=== PATIENT | male | born 1940 | race Caucasian/White ===

== ENCOUNTER 2021-04-07 13:58 | Outpatient (CLI) | payer MEDICARE, SELFPAY ==
--- NOTE | ~2021-04-07 | CT_ITS ---
EXAMINATION: CT abdomen pelvis wo con DATE: 04/07/2021 14:25 INDICATION: History of malignant neoplasm of the bladder TECHNIQUE: Computed tomography (CT) of the abdomen and pelvis was performed without intravenous contr ast. Automated exposure control and iterative reconstruction technique were employed. Exam dose: 429 .95 mGy-cm total exam DLP. COMPARISON: 01/06/2017 CT abdomen pelvis with IV contrast material FINDINGS: Chronic stable focal scarring in the middle lobe, unchanged since 01/06/2017. Minimal atelect asis at the left lung base. Normal heart size. Coronary artery calcifications. There is a small pericardial effusion. No pleural effusion. Small sliding hiatal hernia. Status post cholecystectomy. Calcified hepatic granuloma. Occasional calcified splenic granulomas. No hepatic, splenic, pancreatic, and adrenal space-occupying mass lesion is evident. Probable 2.5 cm lower pole left renal cyst (mean 8.4 Hounsfield units), increased from approximately 1.5 cm dimension on 01/06/2017. No other renal space occupying mass lesion is suggested on this limited noncontrast examination. There is calcification of the abdominal aorta and prominent calcification at the origins of the renal arteries. No abdominal aortic aneurysm. Prominent iliac and femoral artery calcifications. Status post prostatectomy; surgical clips are noted along the pelvic briseno. No intraperitoneal or ret roperitoneal or pelvic mass lesion or adenopathy or ascites is evident. Bilateral small fat-containing inguinal hernias. There is a prominent tibiotalar colon but no bowel obstruction is evident.. Prominent calcifications are noted at the prostate bed and the left anterolateral base of the urinary bladder, Moderate anterior wedge compression fracture deformity of T10. Diffuse osteopenia. Moderate degenerat carmela disc disease at L2-3 and L3-4 and moderately severe degenerative disc disease at L4-5 and L5-S1. IMPRESSION: Status post prostatectomy No significant abdominal or pelvic mass lesion or lymphadenopathy is evident 2.5 cm lower pole left renal probable cyst, increased from 1.5 cm dimension on 01/06/2017 Status post cholecystectomy Small sliding hiatal hernia Small pericardial effusion Reviewed, dictated and finalized at [facility] Reviewed, dictated and finalized at [facility].
== END 2021-04-07 13:59 | disposition home or self-care (01) ==
PROVIDERS: PCP Family Medicine; Visit Provider Urology
DX: Z85.51 Personal history of malignant neoplasm of bladder (principal); K44.9 Diaphragmatic hernia without obstruction or gangrene; Z90.49 Acquired absence of other specified parts of digestive tract; I31.3 Pericardial effusion (noninflammatory)
CPT/HCPCS: 74176

== ENCOUNTER 2021-05-03 15:12 | Emergency (ER) | payer MEDICARE, SELFPAY ==
[2021-05-03 15:24] VITALS: BP 118/73; PULSE 86; RESP 18; TEMP 36; O2SAT 97
--- NOTE | 2021-05-03 15:43 | ED.EAR ---
HPI - Ear Problem General Chief complaint: Ear Stated complaint: Left Ear Pain Time Seen by Provider: 05/03/21 15:31 Source: patient and RN notes reviewed Mode of arrival: ambulatory Limitations: no limitations History of Present Illness HPI Narrative: Patient presents today complaining of a possible foreign body to his left ear. Patient believes he may have a hearing aid ear piece lodged in his left ear canal for the past 4 days, but is unsure. First he believed it may been some earwax so he used some Debrox drops, but did not feel that they penetrated down his ear canal to his eardrum properly. 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 He is experiencing some intermittent shooting pains through his ear canal MD Complaint: ear pain Related Data Home Medications Medication Instructions Recorded Confirmed lisinopril 20 mg PO BID 08/13/19 12/29/20 metoprolol succinate 100 mg 100 mg PO DAILY 12/29/20 12/29/20 tablet,extended release 24 hr pravastatin 20 mg tablet 20 mg PO DAILY tablet 12/29/20 12/29/20 nitrofurantoin monohyd/m-cryst 05/03/21 05/03/21 Allergies Allergy/AdvReac Type Severity Reaction Status Date / Time No Known Allergies Allergy Unverified 05/03/21 15:37 Review of Systems Review of Systems: CONSTITUTIONAL: Denies body aches, fever, chills, or sweats. EYES: Denies visual changes, redness, or discharge. ENT: Denies rhinorrhea, congestion, sore throat. + Left ear pain, possible foreign body CARDIOVASCULAR: Denies chest pain, palpitations, or edema. RESPIRATORY: Denies cough or dyspnea. GASTROINTESTINAL: Denies abdominal pain, nausea, vomiting, or diarrhea. GENITOURINARY: Denies dysuria or hematuria. SKIN: Denies rash, itching, or wounds. MUSCULOSKELETAL: Denies back pain, joint pain, or myalgia. NEUROLOGIC: Denies headache, numbness, tingling, or weakness. PSYCH: Denies depression or anxiety. [facility] Past Medical History Medical History Bladder cancer CAD (coronary artery disease) History of prostate cancer 1998 Hyperlipidemia Hypertension Prostate CA 1998 Seasonal allergies Use of leuprolide acetate (Lupron) Surgical History Surgical History H/O colonoscopy with polypectomy History of appendectomy History of cholecystectomy History of coronary artery stent placement 1 stent 2003 Hx of colonoscopy Hx of total knee arthroplasty R S/P prostatectomy Family History Family History Father Alzheimer disease Social History Social History Social History: Smoking packs per day: 1 Smoking cigarettes per day: 20.0 Smoking status: Former smoker Tobacco type: cigarettes Second hand tobacco smoke exposure: No Smoking end date: 11/01/99 Alcohol intake: never Substance use: never Substance use type: does not use Gender identity (if verbalized by the patient): Male Comments At time of signature, I have reviewed and agree with nursing past medical, surgical, social and family history unless otherwise noted. Please see nursing chart for further information. There is no relevant family history pertinent to the presenting complaint Exam Narrative: GENERAL: Well-appearing, well-nourished, and in no acute distress. HEAD: Normocephalic, atraumatic. EYES: EOMI. No redness or drainage. Conjunctivae normal. ENT: Mucous membranes pink and moist. Nares clear. Parrish plastic foreign body to left ear canal. See procedure note. NECK: Normal AROM. Supple. No lymphadenopathy. CHEST: No respiratory distress. EXTREMITIES: Normal range of motion. No edema. SKIN: Warm, dry, no rash. Capillary refill normal. Normal skin turgor. NEURO: No focal deficits. Alert and oriented x3. Gait steady. PSYCH: N
== END 2021-05-03 15:46 | disposition home or self-care (01) ==
PROVIDERS: Emergency Provider Nurse Practitioner; PCP Family Medicine
DX: T16.2XXA Foreign body in left ear, initial encounter (principal); Z87.891 Personal history of nicotine dependence; I25.10 Atherosclerotic heart disease of native coronary artery without angina pectoris; Z85.46 Personal history of malignant neoplasm of prostate; Z85.51 Personal history of malignant neoplasm of bladder; E78.5 Hyperlipidemia, unspecified; I10 Essential (primary) hypertension; Z95.5 Presence of coronary angioplasty implant and graft; Z90.79 Acquired absence of other genital organ(s)
CPT/HCPCS: 69200; 99212; G0463

== ENCOUNTER 2021-05-08 11:08 | Emergency (ER) | payer MEDICARE, SELFPAY ==
[2021-05-08 11:20] VITALS: BP 125/73; PULSE 78; RESP 18; TEMP 36.4; O2SAT 98
--- NOTE | 2021-05-08 11:34 | ED.SKABFB ---
HPI - Skin/Abscess/Foreign Bdy General Chief complaint: Skin/Abscess/Foreign Body Stated complaint: Ridges on Head Time Seen by Provider: 05/08/21 11:19 Source: patient and RN notes reviewed Mode of arrival: ambulatory Limitations: no limitations History of Present Illness HPI narrative: Patient presents today complaining of rash to his left forehead since this morning. Prior to this rash popping up he did have pain to his left rastafarian yesterday. He also reports a similar rash to the left part in his hair on the left parietal scalp, but he is not sure how long this has been present. Both areas are tender to touch. The area to his left forehead has spread to the left eyebrow. He has used some lubricating eyedrops to the left eye today, but no other odky-xiw-gsdnnfm treatment. MD complaint: rash Related Data Home Medications Medication Instructions Recorded Confirmed lisinopril 20 mg PO BID 08/13/19 12/29/20 metoprolol succinate 100 mg 100 mg PO DAILY 12/29/20 12/29/20 tablet,extended release 24 hr pravastatin 20 mg tablet 20 mg PO DAILY tablet 12/29/20 12/29/20 nitrofurantoin monohyd/m-cryst 05/03/21 05/03/21 Allergies Allergy/AdvReac Type Severity Reaction Status Date / Time No Known Allergies Allergy Unverified 05/03/21 15:37 Review of Systems Review of Systems: CONSTITUTIONAL: Denies body aches, fever, chills, or sweats. EYES: Denies visual changes, redness, or discharge. ENT: Denies rhinorrhea, congestion, sore throat, or otalgia. CARDIOVASCULAR: Denies chest pain, palpitations, or edema. RESPIRATORY: Denies cough or dyspnea. GASTROINTESTINAL: Denies abdominal pain, nausea, vomiting, or diarrhea. GENITOURINARY: Denies dysuria or hematuria. SKIN: Denies itching, or wounds. + Rash MUSCULOSKELETAL: Denies back pain, joint pain, or myalgia. NEUROLOGIC: Denies headache, numbness, tingling, or weakness. PSYCH: Denies depression or anxiety. [facility] Past Medical History Medical History Bladder cancer CAD (coronary artery disease) History of prostate cancer 1998 Hyperlipidemia Hypertension Prostate CA 1998 Seasonal allergies Use of leuprolide acetate (Lupron) Surgical History Surgical History H/O colonoscopy with polypectomy History of appendectomy History of cholecystectomy History of coronary artery stent placement 1 stent 2003 Hx of colonoscopy Hx of total knee arthroplasty R S/P prostatectomy Family History Family History Father Alzheimer disease Social History Social History Social History: Smoking packs per day: 1 Smoking cigarettes per day: 20.0 Smoking status: Former smoker Tobacco type: cigarettes Second hand tobacco smoke exposure: No Smoking end date: 11/01/99 Alcohol intake: never Substance use: never Substance use type: does not use Gender identity (if verbalized by the patient): Male Comments At time of signature, I have reviewed and agree with nursing past medical, surgical, social and family history unless otherwise noted. Please see nursing chart for further information. There is no relevant family history pertinent to the presenting complaint Exam Narrative: GENERAL: Well-appearing, well-nourished, and in no acute distress. HEAD: Normocephalic, atraumatic. EYES: EOMI. No redness or drainage. Conjunctivae normal. ENT: Mucous membranes pink and moist. NECK: Normal AROM. Supple. Left postauricular lymphadenopathy. CHEST: No respiratory distress. EXTREMITIES: Normal range of motion. No edema. SKIN: Warm, dry. Capillary refill normal. Normal skin turgor. Cluster of tiny scabbed lesions with 2 cm surrounding erythema and localized scant edema to the forehead and left eyebrow as well as a cluster
== END 2021-05-08 11:41 | disposition home or self-care (01) ==
PROVIDERS: Emergency Provider Nurse Practitioner; PCP Family Medicine
DX: B02.9 Zoster without complications (principal); Z87.891 Personal history of nicotine dependence; E78.5 Hyperlipidemia, unspecified; I10 Essential (primary) hypertension; I25.10 Atherosclerotic heart disease of native coronary artery without angina pectoris; Z85.46 Personal history of malignant neoplasm of prostate; Z85.51 Personal history of malignant neoplasm of bladder; Z95.5 Presence of coronary angioplasty implant and graft; Z90.79 Acquired absence of other genital organ(s); Z96.659 Presence of unspecified artificial knee joint
CPT/HCPCS: 99213; G0463

== ENCOUNTER 2021-05-22 10:29 | Emergency (ER) | payer MEDICARE, SELFPAY ==
[2021-05-22 10:41] VITALS: BP 134/79; PULSE 80; RESP 18; TEMP 36.2; O2SAT 100
--- NOTE | 2021-05-22 11:06 | ED.GENADULT ---
HPI - General Adult General Chief complaint: Skin/Abscess/Foreign Body Stated complaint: SHINGLES Time Seen by Provider: 05/22/21 11:06 Source: patient and RN notes reviewed Mode of arrival: ambulatory Limitations: no limitations History of Present Illness HPI narrative: 81-year-old male presents with complaints of a raised and painful area to the left side of the scalp for 1 day. ?Hunter reports he was recently treated for shingles and believes he is having another flare up at this time. Reports in a similar way initial rash started off. ?Recently treated with Valacyclovir 1,000mg T.I.D. for 7 days and believes he still has some residual affects. ?Denies new changes in personal hygiene products or laundry detergent. No new foods or medications. No swelling, burning, bleeding, or drainage. Denies fever, chills, headaches, weakness, fatigue, myalgia, facial swelling, or tongue swelling. ?Denies chest pain or dyspnea. Tolerating po intake well. ?The patient reports he has not been diagnosed with COVID-19. ?The patient reports he received 2 AWID COVID-19 vaccines. ?The patient reports he is not waiting for the results of a COVID-19 lab test. ?The patient reports he does not have a new or worsening cough or shortness of breath. ?The patient reports he does not have any rhinorrhea, congestion, loss of taste or smell, sore throat, and diarrhea. ?Denies recent traveling. Denies concerns for COVID-19 or exposures. At this time, the patient is not suspected of having COVID-19. Some parts of this dictation were generated by voice recognition software and may contain typographical and/or grammatical inaccuracies. Related Data Home Medications Medication Instructions Recorded Confirmed lisinopril 20 mg PO BID 08/13/19 05/22/21 metoprolol succinate 100 mg 100 mg PO DAILY 12/29/20 05/22/21 tablet,extended release 24 hr pravastatin 20 mg tablet 20 mg PO DAILY tablet 12/29/20 05/22/21 cetirizine 5 mg-pseudoephedrine ER 1 tablet PO Q12H 05/27/21 120 mg tablet,extended release,12hr fluticasone propionate 50 1 spray INTRANASAL DAILY 05/27/21 mcg/actuation nasal spray,suspension Allergies Allergy/AdvReac Type Severity Reaction Status Date / Time No Known Allergies Allergy Unverified 05/22/21 10:33 Review of Systems Review of Systems: CONSTITUTIONAL: Denies fever, chills, sweats. EYES: Denies visual changes, redness, discharge. ENT: Denies rhinorrhea, congestion, sore throat, otalgia. CARDIOVASCULAR: Denies chest pain, palpitations, edema. RESPIRATORY: Denies dyspnea, wheezing, cough. GASTROINTESTINAL: Denies abdominal pain, nausea, vomiting, diarrhea. SKIN: Complains of a raised and painful area to the left side of the scalp. Denies drainage. MUSCULOSKELETAL: Denies acute back pain, joint pain, or myalgia. NEUROLOGIC: Denies numbness, or focal weakness. PSYCHIATRIC: Denies anxiety or depression. All systems reviewed & are unremarkable except as noted in HPI and below. [facility] Past Medical History Medical History Bladder cancer CAD (coronary artery disease) History of prostate cancer 1998 Hyperlipidemia Hypertension Prostate CA 1998 Seasonal allergies Use of leuprolide acetate (Lupron) Surgical History Surgical History H/O colonoscopy with polypectomy History of appendectomy History of cholecystectomy History of coronary artery stent placement 1 stent 2003 Hx of colonoscopy Hx of total knee arthroplasty R S/P prostatectomy Family History Family History Father Alzheimer disease Social History Social History Social History: Smoking packs per day: 1 Smoking cigarettes per day: 20.0 Smoking status: Former smoker Tobacco type: cigarettes Second hand tobacco smoke exposure: No
== END 2021-05-22 11:25 | disposition home or self-care (01) ==
PROVIDERS: Emergency Provider Nurse Practitioner Family; PCP Family Medicine
DX: B02.9 Zoster without complications (principal); Z87.891 Personal history of nicotine dependence; I25.10 Atherosclerotic heart disease of native coronary artery without angina pectoris; E78.5 Hyperlipidemia, unspecified; I10 Essential (primary) hypertension; Z85.51 Personal history of malignant neoplasm of bladder; Z85.46 Personal history of malignant neoplasm of prostate; Z95.5 Presence of coronary angioplasty implant and graft; Z90.79 Acquired absence of other genital organ(s)
CPT/HCPCS: 99213; G0463

== ENCOUNTER 2021-12-13 07:09 | Emergency (ER) | payer MEDICARE, SELFPAY ==
--- NOTE | ~2021-12-13 | CT_ITS ---
EXAMINATION: CT abdomen pelvis w con DATE: 12/13/2021 09:03 INDICATION: Upper abdominal pain. TECHNIQUE: Computed tomography (CT) of the abdomen and pelvis was performed with 100 mL Omnipaque 350 intravenous contrast. Automated exposure control and iterative reconstruction technique were employe d. The dose-length product was 571.64 mGy-cm. COMPARISON: CT abdomen and pelvis 04/07/21 FINDINGS: The visualized portions of the lung bases demonstrate mild atelectasis. No pleural effusion . The heart size is normal. There are coronary artery calcifications. There is a chronic small perica rdial effusion. There is a portacaval shunt in right hepatic lobe. There are changes of cholecystecto my. Calcifications in the spleen are consistent with old granulomatous disease. The pancreas and adre nal glands are normal. There is cortical thinning of the kidneys. There is a 2.9 cm cyst in left kidn ey. There are no dilated loops of bowel. There is a 3.4 cm mass in distal transverse colon. The appen avinash is not visualized. There are changes of prostatectomy and pelvic lymph node dissection. There are no pathologically enlarged lymph nodes. There is no free intraperitoneal fluid. There is prominent f at in the inguinal canals that may be hernias. There is severe lumbar spondylosis. There is a chronic burst fracture of T10. IMPRESSION: 1. 3.4 cm mass in distal transverse colon suspicious for primary adenocarcinoma. Colonoscopy is recom mended. Reviewed, dictated and finalized at [facility]. IMPRESSION: 1. 3.4 cm mass in distal transverse colon suspicious for primary adenocarcinoma . Colonoscopy is recommended.
[2021-12-13 07:15] VITALS: BP 159/80; PULSE 84; RESP 18; TEMP 36.4; O2SAT 98
[2021-12-13 07:20] VITALS: BP 159/80; O2SAT 100
[2021-12-13 07:31] VITALS: BP 156/82; O2SAT 97
[2021-12-13 07:33] LABS: Basophils Percent Auto 0.2 % (0.2-1.2); Eosinophils Absolute Auto 0.5 K/mm3 (0-0.3); Eosinophils Percent Auto 5.3 % (0-4.4); Hematocrit 42.9 % (42.0-52.0); Hemoglobin 14.9 g/dL (14.0-18.0); Immature Granulocyte Absolute 0.02 K/mm3 (0.00-0.031); Immature Granulocyte Percent A 0.2 % (0-0.5); Lymphocytes Absolute Auto 1.92 K/mm3 (0.9-3.2); Lymphocytes Percent Auto 20.7 % (18.3-44.2); Mean Corpuscular HGB Conc 34.7 g/dl (32-36); Mean Corpuscular Volume 94.9 fl (80-100); Mean Platelet Volume 9.3 fl (7.4-10.4); Monocytes Absolute Auto 0.8 K/mm3 (0.1-0.6); Monocytes Percent Auto 9.1 % (2.6-8.5); Neutrophils Percent Auto 64.5 % (45.5-73.1); Platelet Count Result 242 k/mm3 (150-375); Red Blood Count 4.52 M/mm3 (4.6-6.20); Red Cell Distribution Width 13.8 % (11.5-14.5); White Blood Count 9.3 K/mm3 (4.5-10.0)
[2021-12-13 07:38] LABS: Add Urine Microscopic? YES; Appearance Urine Cloudy (Clear); Bilirubin Urine Negative (Negative); Blood Urine Negative (Negative); Color Urine Amber (Yellow); Glucose Urine UA Negative (Negative); Hyaline Casts Urine 30-49 /lpf; Ketones Urine Negative (Negative); Leukocyte Esterase Ur Negative LEU/UL (Negative); Mucus Urine Rare /lpf; Nitrate Urine Negative (Negative); Protein Urine 1+ mg/dL (Negative); Squamous Epithelial Cell Urine Rare /hpf (Few); Urobilinogen Urine Negative mg/dL (<2.0)
[2021-12-13 07:42] LABS: Alanine Aminotransferase 22 U/L (4-50); Albumin Level 4.6 g/dL (3.5-5.1); Alkaline Phosphatase 70 U/L (38-126); Anion Gap 8 mmol/L (8-16); Aspartate Amino Transferase 40 U/L (17-59); Bilirubin,Total 1.3 mg/dL (0.2-1.3); Blood Urea Nitrogen 12 mg/dL (9-20); Calcium 9.7 mg/dL (8.4-10.2); Carbon Dioxide 28 mmol/L (22-30); Chloride 101 mmol/L (98-107); Estimated CRCL calculation 50 ml/min; Estimated Glomerular Filt Rate > 60; Glucose 111 mg/dL (65-110); Lipase 118 U/L (23-300); Potassium 3.9 mmol/L (3.4-5.0); Sodium 137 mmol/L (137-145)
--- NOTE | 2021-12-13 08:14 | ECG_ITS ---
Measurements Intervals Violet Rate: 69 P: -25 KS: 177 QRS: -3 QRSD: 104 T: 73 QT: 421 QTc: 453 Interpretive Statements SINUS RHYTHM NONSPECIFIC T-WAVE ABNORMALITY COMPARED TO ECG 08/15/2019 10:35:30 NO SIGNIFICANT CHANGE Electronically Signed On 12-13-2021 14:22:50 CDT by Jose Garcia M.D.
[2021-12-13 08:31] VITALS: BP 140/76; PULSE 74; RESP 18; O2SAT 98
[2021-12-13] MEDS: SODIUM CHLORIDE 0.9% IV 1,000 ML 999 ML IV CONT (08:42)
[2021-12-13] MEDS: PANTOPRAZOLE SODIUM IV 40 MG VIAL IV PUSH (08:42)
--- NOTE | 2021-12-13 08:45 | ED.ABDPAIN ---
HPI - Abdominal Pain General Chief Complaint: Abdominal Pain Stated Complaint: abdominal pain Time Seen by Provider: 12/13/21 08:02 Source: patient and RN notes reviewed Mode of arrival: ambulatory Limitations: no limitations History of Present Illness HPI narrative: This is an 81 year old male who presents for evaluation of epigastric abdominal pain. He states he has been having this abdominal pain intermittent for several months. He states this pain usually only happens once a month and last briefly. It usually resolves after taking gas x and belching. This episode started on Monday and it has been constant. He has taken gas x without relief. He has nausea but no vomiting, radiating pain, fever, chills, chest pain or shortness of breath. He takes pepcid intermittently for his symptoms. He rates pain as 4/10 currently. Related Data Home Medications Medication Instructions Recorded Confirmed ascorbate calcium (vitamin C) 500 mg PO DAILY 12/13/21 aspirin [Aspirin Child] 81 mg PO DAILY 12/13/21 cyanocobalamin (vitamin B-12) 2,000 mcg PO DAILY 12/13/21 garlic 1,000 mg PO DAILY 12/13/21 glucosamine sulfate [Glucosamine] 750 mg PO DAILY 12/13/21 ibuprofen 400 mg PO TID PRN 12/13/21 tslmegoj-zoi-ctvc-vitamin K [Adult 1 tablet PO DAILY 12/13/21 Multivitamin with Iron] omega-3 fatty acids-vitamin E 1 cap PO DAILY 12/13/21 [Fish Oil] Allergies Allergy/AdvReac Type Severity Reaction Status Date / Time No Known Allergies Allergy Verified 12/13/21 08:04 Review of Systems Review of Systems: All systems reviewed & are unremarkable except as noted in HPI and below PMFSH Past Medical History Medical History Bladder cancer CAD (coronary artery disease) History of prostate cancer 1998 Hyperlipidemia Hypertension Prostate CA 1998 Seasonal allergies Use of leuprolide acetate (Lupron) Surgical History Surgical History H/O colonoscopy with polypectomy History of appendectomy History of cholecystectomy History of coronary artery stent placement 1 stent 2003 Hx of colonoscopy Hx of total knee arthroplasty R S/P prostatectomy Family History Family History Father Alzheimer disease Social History Social History (Updated 09/02/21 @ 08:41 by Paige Dugan) Social History: Smoking packs per day: 1 Smoking cigarettes per day: 20.0 Smoking status: Former smoker Tobacco type: cigarettes Second hand tobacco smoke exposure: No Smoking end date: 11/01/99 Alcohol intake: never Substance use: never Substance use type: does not use Gender identity (if verbalized by the patient): Male Sexual Orientation (if Verbalized by the Patient): Straight or Heterosexual Exam Const: General: no acute distress and alert Orientation/consciousness: patient oriented x3 Neck: Neck: no lymphadenopathy Resp: Effort & Inspection: normal respiratory effort and no retractions Auscultation: clear to auscultation bilaterally Cardio: Rate: regular rate Rhythm: regular rhythm Heart sounds: no murmurs GI: GI Palp: Yes Soft to palpation, Yes Tenderness to palpation present (GI) (RLQ, epigastric), No Guarding due to palpation present (GI) and No Rigid due to palpation Auscultation: normal bowel sounds Skin: General skin exam: normal color Neuro: General: patient oriented x3, moves all extremities and CN's II-XI intact bilaterally Extrem: General: normal to inspection Psych: Mental Status: mental status grossly normal Affect: normal affect Course Reevaluation(s) Reevaluation #1: I have discussed with patient that CT shows mass concerning for cancer and that he will need to colonoscopy. He feels better and he states he is comfortable with discharge home. I spoke with PCP and Dr. Simmons about CT report. They will try to get p
[2021-12-13 09:05] LABS: Lactic Acid Reflex 0.8 mmol/L (0.7-2.1)
[2021-12-13 09:18] LABS: Troponin I < 0.012 ng/mL (0.000-0.034)
[2021-12-13 10:16] VITALS: BP 155/78; PULSE 75; RESP 18; O2SAT 99
== END 2021-12-13 10:20 | disposition home or self-care (01) ==
PROVIDERS: Emergency Provider General Practice; PCP Family Medicine
DX: K63.9 Disease of intestine, unspecified (principal); R10.13 Epigastric pain; I25.10 Atherosclerotic heart disease of native coronary artery without angina pectoris; E78.5 Hyperlipidemia, unspecified; I10 Essential (primary) hypertension; Z85.46 Personal history of malignant neoplasm of prostate; Z85.51 Personal history of malignant neoplasm of bladder; R94.31 Abnormal electrocardiogram [ECG] [EKG]
CPT/HCPCS: 36415; 74177; 80053; 81001; 83605; 83690; 84484; 85025; 93005; 96361; 96374; 99284; C9113; J7030; Q9967

== ENCOUNTER 2021-12-21 00:21 | Day surgery (SDC) | payer MEDICARE, SELFPAY ==
[2021-12-15 12:58] VITALS: BMI 24.5
[2021-12-21 08:52] VITALS: BP 126/95; PULSE 84; RESP 18; TEMP 35.9; O2SAT 96
[2021-12-21] MEDS: LACTATED RINGERS 1,000 ML 150 ML IV CONT (09:07)
--- NOTE | 2021-12-21 09:13 | WPDGICN ---
Assessment and Plan Assessment and plan (1) Abnormal CT scan: Code(s): R93.89 - Abnormal findings on diagnostic imaging of other specified body structures Status: Acute Assessment and Plan: Abnormal CT scan suggesting mass in the transverse colon. For this reason colonoscopy will be performed today. Further recommendations will be given after endoscopy. (2) History of colon polyps: Code(s): Z86.010 - Personal history of colonic polyps Status: Acute Assessment and Plan: Patient gives a distant history of colon polyps. Plan is for surveillance colonoscopy at this time because of this history. (3) Dyspepsia: Code(s): R10.13 - Epigastric pain Status: Acute Assessment and Plan: Patient gives a history of epigastric pain and gas that improves with omeprazole, Tums and Gas-X. Plan to continue these medications. If pain persists an EGD may need to be performed electively. GI Consult Note Consult date/time: 12/21/21 09:13 HPI: Hunter Ribeiro is a 81 year old male presents for colonoscopy because of abnormal CT scan. Patient reports for many years he has had epigastric pain. This will worsen with spicy foods. Caused him to have gas and belching. The pain will improve with antacid such as Tums and Gas-X. He also has had improvement with omeprazole. He states he had a more severe pain very similar to this within the last 2 weeks prompting him to go to the emergency room. A CT scan in the emergency room suggested a mass in the transverse colon. Patient presents today for further evaluation including colonoscopy. Patient reports having previous colonoscopy with multiple colon polyps removed most recently 10 years ago in [place]. Patient's family history is noncontributory. He does notice some irregularity to his bowel habits that hers chronic in nature. He has never had any bleeding. His weight remains stable. He presents today for colonoscopy. Review of Systems Review of Systems: All systems reviewed & are unremarkable except as noted in HPI and below PMFSH Past Medical History Medical History Bladder cancer CAD (coronary artery disease) History of prostate cancer 1998 Hyperlipidemia Hypertension Prostate CA 1998 Seasonal allergies Use of leuprolide acetate (Lupron) Surgical History Surgical History H/O colonoscopy with polypectomy History of appendectomy History of cholecystectomy History of coronary artery stent placement 1 stent 2003 Hx of colonoscopy Hx of total knee arthroplasty R S/P prostatectomy Family History Family History Father Alzheimer disease Social History Social History (Updated 09/02/21 @ 08:41 by Paige Dugan) Social History: Smoking packs per day: 1 Smoking cigarettes per day: 20.0 Years smoked: 48 Smoking pack-years: 48.00 Smoking status: Former smoker Tobacco type: cigarettes Second hand tobacco smoke exposure: No Smoking end date: 11/01/99 Alcohol intake: current Substance use: never Substance use type: does not use Living arrangements: with family Gender identity (if verbalized by the patient): Male Sexual Orientation (if Verbalized by the Patient): Straight or Heterosexual Spiritual care concerns: No Meds Home Medications and Allergies Home Medications Medication Instructions Recorded Confirmed Type famotidine 40 mg tablet 40 mg PO BID #180 tablet 07/23/21 12/21/21 Rx cetirizine 5 mg-pseudoephedrine ER 1 tablet PO Q12H PRN #180 tablet 09/02/21 12/21/21 Rx 120 mg tablet,extended release,12hr fluticasone propionate 50 1 spray INTRANASAL DAILY #48 g 09/02/21 12/21/21 Rx mcg/actuation nasal spray,suspension lisinopril 20 mg tablet 20 mg PO BID #180 tablet 09/02/21 12/21/21 Rx metoprolol succ
--- NOTE | 2021-12-21 09:16 | WPDANESEPPF ---
Anes - Initial Pre Proc Eval Procedure: Operation Date: 12/21/21 10:15 Proposed Procedures p Colonoscopy - Vinh Simmons MD Date/Time: 12/21/21 09:16 Surgeon: Vinh Simmons MD Pre Op Diagnosis: colon mass, abnormal CAT scan Patient Data Age: 81 Gender: M Height: 1.83 m Weight: 79.4 kg Last Vital Signs Temp 35.9 C L 12/21/21 08:52 Pulse 84 12/21/21 08:52 Resp 18 12/21/21 08:52 BP 126/95 H 12/21/21 08:52 Pulse Ox 96 12/21/21 08:52 Allergies Allergy/AdvReac Type Severity Reaction Status Date / Time No Known Allergies Allergy Verified 12/15/21 12:59 Home Medications Medication Instructions Recorded Confirmed Type famotidine 40 mg tablet 40 mg PO BID #180 tablet 07/23/21 12/21/21 Rx cetirizine 5 mg-pseudoephedrine ER 1 tablet PO Q12H PRN #180 tablet 09/02/21 12/21/21 Rx 120 mg tablet,extended release,12hr fluticasone propionate 50 1 spray INTRANASAL DAILY #48 g 09/02/21 12/21/21 Rx mcg/actuation nasal spray,suspension lisinopril 20 mg tablet 20 mg PO BID #180 tablet 09/02/21 12/21/21 Rx metoprolol succinate 100 mg 100 mg PO DAILY #90 tablet 09/02/21 12/21/21 Rx tablet,extended release 24 hr pravastatin 20 mg tablet 20 mg PO DAILY #90 tablet 09/02/21 12/21/21 Rx garlic 1,000 mg PO DAILY 12/13/21 12/21/21 History glucosamine sulfate [Glucosamine] 750 mg PO DAILY 12/13/21 12/21/21 History omeprazole 40 mg PO DAILY #14 cap 12/13/21 12/21/21 Rx polyethylene glycol 3350 [Miralax] 17 g PO DAILY #238 g 12/13/21 12/21/21 Rx ascorbic acid (vitamin C) 1 g PO DAILY 12/15/21 12/21/21 History calcium carbonate [Calcium 500] 500 mg PO DAILY 12/15/21 12/21/21 History cholecalciferol (vitamin D3) 25 mcg PO DAILY 12/15/21 12/21/21 History [Vitamin D3] coQ10 (ubiquinol) 200 mg PO DAILY 12/15/21 12/21/21 History cyanocobalamin (vitamin B-12) 1,000 mcg PO DAILY 12/15/21 12/21/21 History [Vitamin B-12] ywqpvudtteju-ejdglqqh-rljcvn 1 tablet PO DAILY 12/15/21 12/21/21 History [Centrum Silver] omega-3 fatty acids-fish oil 1 cap PO DAILY 12/15/21 12/21/21 History [[place] 3 Fish Oil] Patient hx anesthesia problems: none Family hx anesthesia problems: none Results Review: All pre-operative results and documents have been reviewed as part of the pre-operative evaluation. [facility] Past Medical History Medical History Bladder cancer CAD (coronary artery disease) History of prostate cancer 1998 Hyperlipidemia Hypertension Prostate CA 1998 Seasonal allergies Use of leuprolide acetate (Lupron) Surgical History Surgical History H/O colonoscopy with polypectomy History of appendectomy History of cholecystectomy History of coronary artery stent placement 1 stent 2003 Hx of colonoscopy Hx of total knee arthroplasty R S/P prostatectomy Family History Family History Father Alzheimer disease Social History Social History Social History: Smoking packs per day: 1 Smoking cigarettes per day: 20.0 Years smoked: 48 Smoking pack-years: 48.00 Smoking status: Former smoker Tobacco type: cigarettes Second hand tobacco smoke exposure: No Smoking end date: 11/01/99 Alcohol intake: current Substance use: never Substance use type: does not use Living arrangements: with family Gender identity (if verbalized by the patient): Male Sexual Orientation (if Verbalized by the Patient): Straight or Heterosexual Spiritual care concerns: No Anes - Eval Final PreProcedure Day of Procedure 12/21/21 09:16 Patient weight: normal Heart: regular rate and rhythm Lungs: decreased breath sounds Airway: Mallampati scale class II Neurological: alert and oriented Last oral intake: >/= 8 hours ASA classification: III Emergent:
[2021-12-21 10:36] VITALS: BP 106/55; PULSE 67; RESP 20; O2SAT 97
[2021-12-21 10:46] VITALS: BP 100/50; PULSE 65; RESP 16; O2SAT 97
[2021-12-21 10:56] VITALS: BP 129/63; PULSE 57; RESP 20; O2SAT 100
--- NOTE | 2021-12-21 11:10 | SUR.PHASEII ---
Called Dr. Zimmerman's office and mad appointment for patient - December 30 at 2pm. Informed and patient of same.
== END 2021-12-21 11:21 | disposition home or self-care (01) ==
PROVIDERS: PCP Family Medicine; Visit Provider Internal Medicine Gastroenterology
PROC: 0DJD8ZZ Inspection of Lower Intestinal Tract, Via Natural or Artificial Opening Endoscopic (ICD-10-PCS; CPT 45378; principal; 2021-12-21 10:15)
DX: D12.3 Benign neoplasm of transverse colon (principal); I25.10 Atherosclerotic heart disease of native coronary artery without angina pectoris; Z85.51 Personal history of malignant neoplasm of bladder; I10 Essential (primary) hypertension; E78.5 Hyperlipidemia, unspecified; Z85.46 Personal history of malignant neoplasm of prostate; Z95.5 Presence of coronary angioplasty implant and graft; Z90.49 Acquired absence of other specified parts of digestive tract; Z87.891 Personal history of nicotine dependence; R10.13 Epigastric pain; R14.0 Abdominal distension (gaseous); R14.2 Eructation
CPT/HCPCS: 45385; 45381; 88304; 88305; J2704; J7120

== ENCOUNTER 2022-02-10 10:45 | Emergency (ER) | payer MEDICARE, SELFPAY ==
--- NOTE | ~2022-02-10 | XR_ITS ---
EXAMINATION: XR wrist RT min 3V INDICATION: Right wrist pain TECHNIQUE: Four views of the right wrist are obtained. COMPARISON: None available FINDINGS: Bone alignment is normal. There is no fracture. Chondrocalcinosis is noted. 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 Soft tissues are unremarkable. IMPRESSION: 1. No acute osseous abnormality. Reviewed, dictated and finalized at location A.
--- NOTE | ~2022-02-10 | XR_ITS ---
EXAMINATION: XR ribs LT 2V INDICATION: Left rib pain TECHNIQUE: 3 views of the left ribs were obtained. COMPARISON: 10/23/2014 FINDINGS: No displaced rib fracture is identified. There is mild atelectasis of the left lung base. N o pleural effusion or pneumothorax is identified. Calcified pulmonary nodules are consistent with old granulomatous disease. IMPRESSION: 1. No displaced rib fracture identified. Reviewed, dictated and finalized at location A.
[2022-02-10 10:48] VITALS: BP 145/78; PULSE 87; RESP 18; TEMP 36.3; O2SAT 96
[2022-02-10 11:24] VITALS: BP 145/78; PULSE 87; RESP 18; TEMP 36.3; O2SAT 96
--- NOTE | 2022-02-10 11:33 | PC.NURSE ---
pt in radiology at this time.
--- NOTE | 2022-02-10 12:14 | ED.FALL ---
HPI - Fall General Chief Complaint: Fall Stated Complaint: Fall Time Seen by Provider: 02/10/22 11:51 Source: patient Mode of arrival: ambulatory Limitations: no limitations History of Present Illness HPI Narrative: 81-year-old male presents with left rib pain and right wrist pain since yesterday. Patient states he was fishing and tripped over his trailer hitch landing on his left side. Patient has been having increased pain since injury. Patient states that the pain increases with taking a deep breath. Patient denies hitting head or LOC. No other complaints MD complaint: fall Onset (ago): day(s) (1) Fall from: standing Fall witnessed: yes, by family Place fall occurred: other ([place]) Loss of consciousness: none Symptoms prior to fall: none Context: tripped/slipped Location of injury: chest Location of injury - extremities: Right: arm Associated symptoms (after fall): denies Related Data Home Medications Medication Instructions Recorded Confirmed garlic 1,000 mg PO DAILY 12/13/21 12/31/21 glucosamine sulfate [Glucosamine] 750 mg PO DAILY 12/13/21 12/31/21 ascorbic acid (vitamin C) 1 g PO DAILY 12/15/21 12/31/21 calcium carbonate [Calcium 500] 500 mg PO DAILY 12/15/21 12/31/21 cholecalciferol (vitamin D3) 25 mcg PO DAILY 12/15/21 12/31/21 [Vitamin D3] coQ10 (ubiquinol) 200 mg PO DAILY 12/15/21 12/31/21 cyanocobalamin (vitamin B-12) 1,000 mcg PO DAILY 12/15/21 12/31/21 [Vitamin B-12] auzjcocbkwrl-gqtfjbfj-dlyquw 1 tablet PO DAILY 12/15/21 12/31/21 [Centrum Silver] omega-3 fatty acids-fish oil 1 cap PO DAILY 12/15/21 12/31/21 [[place] 3 Fish Oil] Allergies Allergy/AdvReac Type Severity Reaction Status Date / Time No Known Allergies Allergy Verified 02/10/22 11:23 Review of Systems Review of Systems: All systems reviewed & are unremarkable except as noted in HPI and below Constitutional: Constitutional: Reports no additional constitutional complaints Eyes: Eyes: Reports no additional eye complaints ENT: Reports system reviewed and no additional complaints, except as documented Cardiovascular: Cardiovascular: Reports no additional cardiovascular complaints Respiratory: Respiratory: Reports no additional respiratory complaints Gastrointestinal: Gastrointestinal: Reports no additional gastrointestinal complaints Genitourinary: Genitourinary: Reports no additional male genitourinary complaints Musculoskeletal: Musculoskeletal: Reports arthralgias Comments: Left ribs right wrist Integumentary/Breasts: Skin/Breast: Reports system reviewed and no additional complaints, except as docu Neurologic: Reports system reviewed and no additional complaints, except as documented Psychiatric: Psychiatric: Reports no additional psychiatric complaints Endocrine: Endocrine: Reports no additional endocrine complaints Hematologic/Lymphatic: Hematologic/Lymphatic: Reports no additional hematologic/lymphatic complaints Allergic/Immunologic: Allergic/Immunologic: Reports no additional allergic/immunologic complaints [facility] Past Medical History Medical History Bladder cancer CAD (coronary artery disease) History of prostate cancer 1998 Hyperlipidemia Hypertension Prostate CA 1998 Seasonal allergies Use of leuprolide acetate (Lupron) Surgical History Surgical History H/O colonoscopy with polypectomy History of appendectomy History of cholecystectomy History of coronary artery stent placement 1 stent 2003 Hx of colonoscopy Hx of total knee arthroplasty R S/P prostatectomy Family History Family History Father Alzheimer disease Other Hypertension Social History Social History Social History: Smoking packs per day: 1 Smoking cigarettes per day: 20.0
[2022-02-10 13:19] VITALS: BP 132/79; PULSE 75; RESP 16; O2SAT 97
== END 2022-02-10 13:00 | disposition home or self-care (01) ==
PROVIDERS: Emergency Provider Nurse Practitioner Family; PCP Family Medicine
DX: S20.212A Contusion of left front wall of thorax, initial encounter (principal); S60.211A Contusion of right wrist, initial encounter; I25.10 Atherosclerotic heart disease of native coronary artery without angina pectoris; E78.5 Hyperlipidemia, unspecified; I10 Essential (primary) hypertension; F17.210 Nicotine dependence, cigarettes, uncomplicated; Z85.46 Personal history of malignant neoplasm of prostate; Z85.51 Personal history of malignant neoplasm of bladder; W01.0XXA Fall on same level from slipping, tripping and stumbling without subsequent striking against object, initial encounter
CPT/HCPCS: 71100; 73110; 99284

== ENCOUNTER 2022-04-13 09:46 | Outpatient (CLI) | payer MEDICARE, SELFPAY ==
[2022-04-13 11:18] LABS: Hematocrit 40.8 % (42.0-52.0); Hemoglobin 13.4 g/dL (14.0-18.0)
== END 2022-04-13 09:47 | disposition home or self-care (01) ==
LOC: ANHSURGERY 09:53
PROVIDERS: Anesthesiology; PCP Family Medicine; Visit Provider Surgery
DX: Z01.812 Encounter for preprocedural laboratory examination (principal); D12.6 Benign neoplasm of colon, unspecified
CPT/HCPCS: 36415; 85014; 85018

== ENCOUNTER 2022-04-21 17:12 | Emergency (ER) | payer MEDICARE, SELFPAY ==
--- NOTE | ~2022-04-21 | XR_ITS ---
EXAMINATION: XR chest 1V portable DATE: 04/21/2022 20:45 INDICATION: Productive cough. Fever. TECHNIQUE: A single frontal view of the chest was obtained. COMPARISON: Left wrist radiographs 02/10/2022 FINDINGS: There is mild elevation of left hemidiaphragm. There is mild atelectasis at left lung base. No pleural effusion or pneumothorax. The heart size is normal. There are surgical clips in right axi lla. IMPRESSION: 1. Mild atelectasis at left lung base. Reviewed, dictated and finalized at location A.
[2022-04-21 17:21] VITALS: BP 145/80; PULSE 90; RESP 20; TEMP 36.9; O2SAT 98
--- NOTE | 2022-04-21 20:30 | ED.GENADULT ---
HPI - General Adult General Chief complaint: Upper Respiratory Infection <Romy Mclaughlin PA-C - Last Filed: 04/22/22 02:18> Stated complaint: Wants COVID Test <Romy Mclaughlin PA-C - Last Filed: 04/22/22 02:18> Time Seen by Provider: 04/21/22 20:07 <Romy Mclaughlin PA-C - Last Filed: 04/22/22 02:18> History of Present Illness HPI narrative: Patient is 82-year-old male here for evaluation of cough for the past 2 days. Patient states the cough is productive in nature, and is relieved from ojrj-agw-wkdivpf medications. States that he largely presents today for COVID test, as he did not want to wait in line at [facility] or get an appointment. He had a low-grade temperature yesterday at 100.1, took Tylenol with resolution. He is not having any chest pain, shortness of breath, leg swelling. He is fully vaccinated with 2 boosters. <Romy Mclaughlin PA-C - Last Filed: 04/22/22 02:18> Related Data Home medications: Home Medications Medication Instructions Recorded Confirmed garlic 1,000 mg capsule 1,000 mg PO DAILY 12/13/21 04/13/22 glucosamine sulfate 750 mg tablet 750 mg PO DAILY 12/13/21 04/13/22 ascorbic acid (vitamin C) 1,000 mg 1 g PO DAILY 12/15/21 04/13/22 tablet calcium carbonate 500 mg calcium 500 mg PO DAILY 12/15/21 04/13/22 (1,250 mg) tablet cholecalciferol (vitamin D3) 25 25 mcg PO DAILY 12/15/21 04/13/22 mcg (1,000 unit) tablet (Vitamin D3) coQ10 (ubiquinol) 200 mg capsule 200 mg PO DAILY 12/15/21 04/13/22 cyanocobalamin (vitamin B-12) 1,000 mcg PO DAILY 12/15/21 04/13/22 1,000 mcg tablet (Vitamin B-12) ucnezkncjyig-jthdlqhs-taviho tablet 1 tablet PO DAILY 12/15/21 04/13/22 omega-3 fatty acids-fish oil 684 1 cap PO DAILY 12/15/21 04/13/22 mg-1,200 mg capsule,delayed release <Romy Mclaughlin PA-C - Last Filed: 04/22/22 02:18> Allergies/adverse reactions: Allergies Allergy/AdvReac Type Severity Reaction Status Date / Time No Known Allergies Allergy Verified 04/21/22 20:04 <Romy Mclaughlin PA-C - Last Filed: 04/22/22 02:18> Review of Systems Review of Systems: Gen: Reports fevers. Eyes: Denies eye pain or visual change ENT: Reports congestion Respiratory: Reports cough. Denies shortness of breath CV: Denies chest pain or palpitations GI: Denies abdominal pain nausea, emesis or diarrhea : denies burning, urgency, frequency or hematuria Musculoskeletal: Denies back pain or muscle pain Neuro: Denies numbness, tingling, weakness or focal weakness Skin: Denies rash Except as documented, all other systems reviewed and negative <Romy Mclaughlin PA-C - Last Filed: 04/22/22 02:18> [facility] Past Medical History Medical History: Medical History Bladder cancer CAD (coronary artery disease) History of prostate cancer 1998 Hyperlipidemia Hypertension Prostate CA 1998 Seasonal allergies Use of leuprolide acetate (Lupron) <Romy Mclaughlin PA-C - Last Filed: 04/22/22 02:18> Surgical History Surgical History: Surgical History H/O colonoscopy with polypectomy History of appendectomy History of cholecystectomy History of coronary artery stent placement 1 stent 2003 Hx of colonoscopy Hx of total knee arthroplasty R S/P prostatectomy <Romy Mclaughlin PA-C - Last Filed: 04/22/22 02:18> Family History Family History: Family History Father Alzheimer disease Other Hypertension <Romy Mclaughlin PA-C - Last Filed: 04/22/22 02:18> Social History Social History: Social History (Updated 03/03/22 @ 15:15 by Paige Dugan) Social History: Smoking packs per day: 1 Smoking cigarettes per day: 20.0 Years smoked: 48 Smoking pack-years: 48.00 Smoking status: Former smoker
[2022-04-21 21:17] LABS: SARS-CoV-2 RNA PCR Positive
[2022-04-21] MEDS: BENZONATATE 100 MG CAPSULE PO (21:42)
== END 2022-04-21 22:20 | disposition home or self-care (01) ==
PROVIDERS: Physician Assistant; Emergency Provider Emergency Medicine; PCP Family Medicine
DX: U07.1 COVID-19 (principal); I25.10 Atherosclerotic heart disease of native coronary artery without angina pectoris; Z85.51 Personal history of malignant neoplasm of bladder; Z85.46 Personal history of malignant neoplasm of prostate; Z95.5 Presence of coronary angioplasty implant and graft; Z96.651 Presence of right artificial knee joint; Z90.79 Acquired absence of other genital organ(s); Z87.891 Personal history of nicotine dependence
CPT/HCPCS: 71045; 99283; A9270; C9803; U0003; U0005

== ENCOUNTER 2022-05-17 16:42 | Inpatient (IN) | payer MEDICARE, SELFPAY ==
--- NOTE | 2022-04-13 10:37 | PC.NURSE ---
Report to the Outpatient Waiting Room, entrance under the green pavilion located off [facility], at time __1000 on date _04/27/22 . OR Time: _1200 . - You and your visitor will be asked a series of questions to screen for COVID 19 for your protection. - Only one visitor is allowed at this time. - The patient visitor is requested to leave or wait in car when not with patient. - A mask is required within the hospital. Patients may have clear liquids (water, carbonated beverages, clear teas, apple juice) until 3 hours prior to surgery with a maximum of 20 ounces. - No food from midnight until time of surgery - Infants may have breast milk until 4 hours before surgery, infant formula 6 hours prior to surgery. - Children will be allowed to drink immediately following surgery. If applicable, please bring a bottle or sippy cup to assist with drinking. Juice, water, soda, and popsicles are readily available. For infants on formula, please bring formula the day of surgery. Pacifiers are allowed. Take the following medications with a SIP of water the morning of surgery: __METOPROLOL Medications to discontinue per physician ____ALL VITAMINS AND SUPPLEMENTS 3 DAYS PRE OP Date to take last dose___04/23/22 Please no make-up, nail english, hairspray, perfume, deodorant, or body powder the day of surgery. No jewelry (including any body piercings) or valuables the day of surgery, leave them at home. Please take a shower or bath the night before, or the morning of, surgery with an antibacterial soap. Wear comfortable, loose fitting clothing. Children are encouraged to wear pajamas. - Jewelry must be removed prior to entering the operating room. Rings and piercings that are not removed may be cut off. - The hospital will not accept responsibility for valuables. - Please leave all valuables, including medications, at home the day of surgery.HIBICLENS SHOWER DAY BEFORE SURGERY AND MORNING OF SURGERY ENSURE BUNDLE /BOWEL PREP PER DR TINSLEY If you are going home after surgery, a licensed local delivery driver must drive you home. - NO public transportation without another adult. - We recommend that an adult stay with you for 24 hours following discharge. - We also recommend that you do not drive, make important decision, drink alcoholic beverages, or take any drugs that were not prescribed by your health care provider for at least 24 hours after your discharge time. For Pediatric surgeries, we recommend two adults accompany the child home (only one inside the building at this time). Follow any additional instructions given to you from your surgeon. If you or anyone in your household have experienced Covid symptoms in the past week, please notify your surgeon or the nurse liaison at the phone number below for possible testing. VERBAL AND WRITTEN instructions given to __PT AND MELISSA and asked if any additional questions and then verbalized understanding. Patient advised to call surgeon office or pre surgery nurse liaison [phone] if any additional questions.
[2022-04-13 11:01] VITALS: BP 131/68; PULSE 70; RESP 18; TEMP 36.7; O2SAT 97; BMI 25.0
[2022-05-12 11:07] VITALS: BMI 25.1
--- NOTE | 2022-05-12 11:12 | PC.NURSE ---
Report to the Outpatient Waiting Room, entrance under the green pavilion located off [facility], at time _0800_ on date _05/17/22_. OR Time: _1000_. - You and your visitor will be asked a series of questions to screen for COVID 19 for your protection. - Only one visitor is allowed at this time. - The patient visitor is requested to leave or wait in car when not with patient. - A mask is required within the hospital. Patients may have clear liquids (water, carbonated beverages, clear teas, apple juice) until 3 hours prior to surgery (0700 AM) with a maximum of 20 ounces. - No food from midnight until time of surgery Take the following medications with a SIP of water the morning of surgery: _METOPROLOL_ Medications to discontinue per ANESTHESIA - ALL VITAMINS AND SUPPLEMENTS 3 DAYS PRIOR TO SURGERY, Date to take last dose 05/13/22_ Please no deodorant, or body powder the day of surgery. No jewelry (including any body piercings) or valuables the day of surgery, leave them at home. Please take a shower or bath the night before, or the morning of, surgery with an antibacterial soap. Wear comfortable, loose fitting clothing. - Jewelry must be removed prior to entering the operating room. Rings and piercings that are not removed may be cut off. - The hospital will not accept responsibility for valuables. - Please leave all valuables, including medications, at home the day of surgery. If you are going home after surgery, a licensed airport driver must drive you home. - NO public transportation without another adult. - We recommend that an adult stay with you for 24 hours following discharge. - We also recommend that you do not drive, make important decision, drink alcoholic beverages, or take any drugs that were not prescribed by your health care provider for at least 24 hours after your discharge time. Follow any additional instructions given to you from your surgeon. ENSURE BUNDLE/BOWEL PREP/PRE-OP ANTIBIOTICS/HIBICLENS SHOWER DAY BEFORE AND AM OF SURGERY If you or anyone in your household have experienced Covid symptoms in the past week, please notify your surgeon or the nurse liaison at the phone number below for possible testing. Telephone instructions given to ___PT and asked if any additional questions and then verbalized understanding. Patient advised to call surgeon office or pre surgery nurse liaison [phone] if any additional questions.
[2022-05-17] VITALS (12 sets, daily range): BP systolic 95–151; BP diastolic 50–88; PULSE 61–88; RESP 12–21; TEMP 35.9–36.4; O2SAT 98–100
[2022-05-17] MEDS: ACETAMINOPHEN 500 MG TABLET 1000 MG PO ×2 (10:27→18:10)
[2022-05-17] MEDS: LACTATED RINGERS 1,000 ML 30 ML IV CONT ×2 (10:45→15:44)
[2022-05-17] MEDS: KETOROLAC 15 MG/ML VIAL (*BKC) IV PUSH (10:51)
--- NOTE | 2022-05-17 11:45 | WPDANESEPPF ---
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 Patient Data Age: 82 Gender: M Height: 1.8 m Weight: 79 kg Last Vital Signs Temp 97.3 F L 05/17/22 09:57 Pulse 88 05/17/22 09:57 Resp 20 05/17/22 09:57 BP 151/56 H 05/17/22 09:57 Pulse Ox 98 05/17/22 09:57 O2 Del Method Room Air 05/17/22 09:57 Allergies Allergy/AdvReac Type Severity Reaction Status Date / Time No Known Allergies Allergy Verified 05/17/22 09:59 Home Medications Medication Instructions Recorded Confirmed Type lisinopril 20 mg tablet 20 mg PO BID #180 tabs 09/02/21 05/17/22 Rx metoprolol succinate 100 mg 100 mg PO DAILY #90 tabs 09/02/21 05/17/22 Rx tablet,extended release 24 hr pravastatin 20 mg tablet 20 mg PO DAILY #90 tabs 09/02/21 05/17/22 Rx garlic 1,000 mg capsule 1,000 mg PO DAILY 12/13/21 05/17/22 History glucosamine sulfate 750 mg tablet 750 mg PO DAILY 12/13/21 05/17/22 History omeprazole 40 mg capsule,delayed 40 mg PO DAILY #14 caps 12/13/21 05/17/22 Rx release ascorbic acid (vitamin C) 1,000 mg 1 g PO DAILY 12/15/21 05/17/22 History tablet calcium carbonate 500 mg calcium 500 mg PO DAILY 12/15/21 05/17/22 History (1,250 mg) tablet cholecalciferol (vitamin D3) 25 25 mcg PO DAILY 12/15/21 05/17/22 History mcg (1,000 unit) tablet (Vitamin D3) coQ10 (ubiquinol) 200 mg capsule 200 mg PO DAILY 12/15/21 05/17/22 History cyanocobalamin (vitamin B-12) 1,000 mcg PO DAILY 12/15/21 05/17/22 History 1,000 mcg tablet (Vitamin B-12) sscvsglvniqn-ykhwdrgb-xziwom tablet 1 tablet PO DAILY 12/15/21 05/17/22 History omega-3 fatty acids-fish oil 684 1 cap PO DAILY 12/15/21 05/17/22 History mg-1,200 mg capsule,delayed release famotidine 40 mg tablet 40 mg PO BID #180 tabs 01/19/22 05/17/22 Rx cetirizine 5 mg-pseudoephedrine ER 1 tablet PO Q12H PRN nasal 03/03/22 05/17/22 Rx 120 mg tablet,extended congestion #180 tabs release,12hr (Zyrtec-D) fluticasone propionate 50 1 spray intranasal DAILY #48 grams 03/03/22 05/17/22 Rx mcg/actuation nasal spray,suspension erythromycin 500 mg tablet See Rx Instructions .Route 03/04/22 05/17/22 Rx .COMPLEX #6 tabs neomycin 500 mg tablet See Rx Instructions .Route 03/04/22 05/17/22 Rx .COMPLEX #6 tabs Laboratory Tests 05/17/22 10:47 Blood Type A Positive Antibody Screen Pending Patient hx anesthesia problems: none Family hx anesthesia problems: none Results Review: All pre-operative results and documents have been reviewed as part of the pre-operative evaluation. [facility] Past Medical History Medical History Bladder cancer CAD (coronary artery disease) History of prostate cancer 1998 Hyperlipidemia Hypertension Prostate CA 1998 Seasonal allergies Use of leuprolide acetate (Lupron) Surgical History Surgical History H/O colonoscopy with polypectomy History of appendectomy History of cholecystectomy History of coronary artery stent placement 1 stent 2003 Hx of colonoscopy Hx of total knee arthroplasty R S/P prostatectomy Family History Family History Father Alzheimer disease Other Hypertension Social History Social History (Updated 03/03/22 @ 15:15 by Paige Dugan) Social History: Smoking packs per day: 1 Smoking cigarettes per day: 20.0 Years smoked: 48 Smoking pack-years: 48.00 Smoking status: Former smoker Tobacco type: cigarettes Second hand tobacco smoke exposure: No Smoking end date: 10/02/99 Alcohol intake: current Alcohol use details: Rare
--- NOTE | 2022-05-17 12:16 | SUR.PREOP ---
1215-PT AND AWARE SURGEON DELAYS SELF, NO PROJECTED TIME AVAILABLE.
--- NOTE | 2022-05-17 12:30 | PM.IMHP ---
H&P: HPI History of Present Illness Date/Time: 05/17/22 12:30 Chief Complaint: Transverse colon mass Narrative: This is an 82-year-old man who presents with a distal transverse colon mass. This was initially seen on a CT and then a colonoscopy confirmed a mass which was biopsied and showed evidence of tubulovillous adenoma. He was seen back in November of 2001 and surgery was recommended at that time. Patient was hesitant to proceed with surgery initially and then eventually decided to proceed. He was scheduled for surgery last month but got COVID and surgery had to be delayed. He is now recovered from his prior infection presents to proceed with hand assisted laparoscopic left hemicolectomy, possible open. Review of Systems Review of Systems: All systems reviewed & are unremarkable except as noted in HPI and below Constitutional: Constitutional: Denies chills, Denies fever(s), Denies headache(s) and Denies weight loss Eyes: Eyes: Denies change in vision ENT: Denies dizziness, Denies headache(s), Denies neck mass and Denies throat swelling Cardiovascular: Cardiovascular: Denies chest pain, Denies lightheadedness and Denies dyspnea Respiratory: Respiratory: Denies cough, Denies dyspnea and Denies wheezing Gastrointestinal: Gastrointestinal: Denies abdominal pain, Denies change in bowel habits, Denies nausea and Denies vomiting Genitourinary: Genitourinary: Denies hematuria and Denies dysuria Musculoskeletal: Musculoskeletal: Reports as per HPI Integumentary/Breasts: Skin/Breast: Reports as per HPI Neurologic: Denies dizziness and Denies headache(s) Allergic/Immunologic: Allergic/Immunologic: Denies throat swelling and Denies wheezing [facility] Past Medical History Medical History Bladder cancer CAD (coronary artery disease) History of prostate cancer 1998 Hyperlipidemia Hypertension Prostate CA 1998 Seasonal allergies Use of leuprolide acetate (Lupron) Surgical History Surgical History H/O colonoscopy with polypectomy History of appendectomy History of cholecystectomy History of coronary artery stent placement 1 stent 2003 Hx of colonoscopy Hx of total knee arthroplasty R S/P prostatectomy Family History Family History Father Alzheimer disease Other Hypertension Social History Social History Social History: Smoking packs per day: 1 Smoking cigarettes per day: 20.0 Years smoked: 48 Smoking pack-years: 48.00 Smoking status: Former smoker Tobacco type: cigarettes Second hand tobacco smoke exposure: No Smoking end date: 10/02/99 Alcohol intake: current Alcohol use details: Rarely Substance use: never Substance use type: does not use Living arrangements: with family Gender identity (if verbalized by the patient): Male Sexual Orientation (if Verbalized by the Patient): Straight or Heterosexual Spiritual care concerns: No Meds Home Medications and Allergies Home Medications Medication Instructions Recorded Confirmed Type lisinopril 20 mg tablet 20 mg PO BID #180 tabs 09/02/21 05/17/22 Rx metoprolol succinate 100 mg 100 mg PO DAILY #90 tabs 09/02/21 05/17/22 Rx tablet,extended release 24 hr pravastatin 20 mg tablet 20 mg PO DAILY #90 tabs 09/02/21 05/17/22 Rx garlic 1,000 mg capsule 1,000 mg PO DAILY 12/13/21 05/17/22 History glucosamine sulfate 750 mg tablet 750 mg PO DAILY 12/13/21 05/17/22 History omeprazole 40 mg capsule,delayed 40 mg PO DAILY #14 caps 12/13/21 05/17/22 Rx release ascorbic acid (vitamin C) 1,000 mg 1 g PO DAILY 12/15/21 05/17/22 History tablet calcium carbonate 500 mg calcium 500 mg PO DAILY 12/15/21 05/17/22 History (1,250 mg) tablet cholecalciferol (vitamin D3) 25 25 mcg PO DAILY
--- NOTE | 2022-05-17 12:33 | WPDHPUPDATE1 ---
History and Physical Update Update Date/Time: 05/17/22 12:33 History and Physical has been reviewed, including an updated exam of the patient. There are NO changes in the patient's condition. Risks, benefits, and alternatives have been discussed and questions answered. Patient agrees to proceed with procedure.
[2022-05-17] MEDS: ceFAZolin 2 GM/D5W 50 ML 2 GM/50 ML BAG IVPB (13:16)
[2022-05-17] MEDS: metroNIDAZOLE 500 MG/ISO 100ML 500 MG/100 ML BAG 100 MG IVPB (13:39)
--- NOTE | 2022-05-17 15:35 | W.PM.PROC2 ---
Procedure Note - Detailed Date of Procedure 05/17/22 Pre-op Diagnosis Tubulovillous Adenoma of Colon Post-op Diagnosis Same Procedure Performed 1. Hand assisted laparoscopic left hemicolectomy with anastomosis 2. Laparoscopic mobilization of splenic flexure Surgeon Raul Zimmerman, DO Anesthesia General and Local (Exparel) Indications This is an 82-year-old man who presented with transverse colon mass identified on CT. He underwent colonoscopy and a distal transverse colon polyp was identified. This was biopsied and tattooed and pathology showed evidence of tubulovillous adenoma. Discussions were made with the patient about treatment options and decision was made to proceed with hand assisted laparoscopic left hemicolectomy. Findings Hand assisted laparoscopic left hemicolectomy was performed. The tattooed region of the transverse colon was identified on the distal transverse colon near the splenic flexure. The splenic flexure was mobilized. With mobilization of the descending colon and distal transverse colon, I was able to have adequate margins for resection and anastomosis. A [id number] anastomosis was performed. The left colon was sent for pathology with the distal staple line marked with a suture. Description of Procedure Procedure as well as risks, benefits, and alternatives were discussed with the patient. Written consent was obtained and placed in the chart prior to procedure. Patient was brought back to surgical suite. He was placed supine on operating table. Time-out was done to confirm patient and procedure. He was then intubated by the anesthesia department. His abdomen was prepped and draped in sterile fashion using chlorhexidine prep. A 7 cm vertical midline incision was made centered on the umbilicus using a 15 blade scalpel. Electrocautery was used for hemostasis and for dissection through Claire's fascia. The linea alba was then incised using electrocautery. The peritoneum was entered using electrocautery. The fascial incision was extended throughout the length of the skin incision and then a wound protector was placed at the incision. A 5 mm port was placed through the GelPort the GelPort was applied and pneumoperitoneum was created using carbon dioxide insufflation. The camera was inserted in the abdomen was inspected. No made abnormalities were identified. The patient was placed in slight Trendelenburg position rotated to the right. A 5 mm incision was made in the right lower quadrant suprapubic region and left lower quadrant and 5 mm trocar was inserted under direct visualization. Exparel was infiltrated locally around the lateral abdomen bilaterally. The abdomen was carefully inspected and the tattooed region of the transverse colon was identified near the splenic flexure. There were a few sigmoid attachments to the lateral abdominal wall that were carefully taken down using hook electrocautery. I then retracted the descending colon medially and took down the lateral peritoneal attachments using hook electrocautery. The descending colon was mobilized from lateral to medial up cephalad towards the splenic flexure. The splenic flexure attachments were then carefully taken down using LigaSure bipolar cautery. I then continued the dissection on to the gastrocolic ligament using LigaSure bipolar cautery. The patient was then placed in reverse Trendelenburg position and the space between the mid transverse colon and greater curvature was carefully dissected with LigaSure bipolar cautery. I entered into the lesser sac and then continued this dissection laterally towards the splenic flexure. Once this was all taken down I was able to completely mobilize the splenic flexure towards the midline. I appeared to have enough mobilization to exteriorized the distal transverse colon and splenic flexure. The patient was flattened out in bed and the colon was grasped at the tattooed region and carefully delivered through the wound pro
[2022-05-17] MEDS: fentaNYL CITRATE INJ (*CRX) 100 MCG/2 ML VIAL 25 MCG IV PUSH ×4 (16:13→16:24)
--- NOTE | 2022-05-17 17:00 | ADMGEN ---
This patient, Hunter Ribeiro, was admitted to Medical Room 245-. Patient/family oriented to hospital policies and general routines including ID bracelet, bed and alarms, visiting hours, pain management, procedures, bathroom and other care routines, personal items, smoking policy, room service/diet, and visiting hours. Information on how to activate the Rapid Response Team has been discussed. Patient/Family are encouraged to report perceived risks to care and to ask questions if they do not understand what they are told or what they should do.
[2022-05-17] MEDS: LACTATED RINGERS 1,000 ML 100 ML IV CONT (17:59)
[2022-05-17] MEDS: FAMOTIDINE 20 MG TABLET 40 MG PO (18:09)
[2022-05-17] MEDS: oxyCODONE HCL (*CRX) 2.5 MG TAB IR PO (20:26)
[2022-05-18] MEDS: MORPHINE SULFATE (*CRX) 4 MG/ML INJ IV PUSH (00:34)
[2022-05-18] MEDS: ACETAMINOPHEN 500 MG TABLET 1000 MG PO ×4 (00:35→17:49)
[2022-05-18 01:45] VITALS: BP 151/74; PULSE 82; RESP 20; TEMP 36.5; O2SAT 98
[2022-05-18] MEDS: LACTATED RINGERS 1,000 ML 100 ML IV CONT (04:40)
[2022-05-18 05:37] VITALS: BMI 24.3
[2022-05-18 05:56] VITALS: BP 151/78; PULSE 81; RESP 21; TEMP 36.3; O2SAT 100
[2022-05-18 06:02] LABS: Hematocrit 37.4 % (42.0-52.0); Hemoglobin 12.2 g/dL (14.0-18.0); Immature Granulocyte Absolute 0.05 K/mm3 (0.00-0.031); Immature Granulocyte Percent A 0.4 % (0-0.5); Lymphocytes Absolute Auto 0.68 K/mm3 (0.9-3.2); Lymphocytes Percent Auto 6.1 % (18.3-44.2); Mean Corpuscular HGB Conc 32.6 g/dl (32-36); Mean Corpuscular Hemoglobin 31.9 pg (26-34); Mean Corpuscular Volume 97.9 fl (80-100); Mean Platelet Volume 10.3 fl (7.4-10.4); Monocytes Absolute Auto 0.5 K/mm3 (0.1-0.6); Monocytes Percent Auto 4.8 % (2.6-8.5); Neutrophils Absolute Auto 9.9 K/mm3 (1.3-6.7); Neutrophils Percent Auto 88.7 % (45.5-73.1); Platelet Count Result 202 k/mm3 (150-375); Red Blood Count 3.82 M/mm3 (4.6-6.20); Red Cell Distribution Width 14.2 % (11.5-14.5); White Blood Count 11.2 K/mm3 (4.5-10.0)
[2022-05-18 06:23] LABS: Anion Gap 9 mmol/L (8-16); Blood Urea Nitrogen 15 mg/dL (9-20); Calcium 8.8 mg/dL (8.4-10.2); Carbon Dioxide 24 mmol/L (22-30); Chloride 100 mmol/L (98-107); Estimated CRCL calculation 47 ml/min; Estimated Glomerular Filt Rate > 60; Glucose 142 mg/dL (65-110); Potassium 3.9 mmol/L (3.4-5.0); Sodium 133 mmol/L (137-145)
[2022-05-18] MEDS: oxyCODONE HCL (*CRX) 5 MG TAB IR PO (08:20)
[2022-05-18] MEDS: PRAVASTATIN SODIUM 20 MG TABLET PO (08:21)
[2022-05-18] MEDS: METOPROLOL SUCCINATE EXT REL 100 MG TABCR PO (08:21)
[2022-05-18] MEDS: FAMOTIDINE 20 MG TABLET 40 MG PO ×2 (08:21→17:49)
[2022-05-18] MEDS: FLUTICASONE PROPIONATE 0.05% NA SPR 16 GM BTL (*BKC) 1 SPRAY NASAL (08:22)
[2022-05-18] MEDS: ENOXAPARIN 40 MG/0.4 ML SYRINGE SUB-Q (08:22)
[2022-05-18] MEDS: PANTOPRAZOLE 40 MG TABLET PO ×2 (08:22→17:49)
--- NOTE | 2022-05-18 09:58 | P.PNAN_ITS ---
Anes - Prog Note Post-Op Date/Time: 05/18/22 09:58 Cardiovascular status: normal Respiratory status: normal Airway patency: baseline Mental status: baseline Post-Op hydration status: normal Vital Signs: Last Vital Signs Temp 36.3 C L 05/18/22 05:56 Pulse 81 05/18/22 05:56 Resp 21 H 05/18/22 05:56 BP 151/78 H 05/18/22 05:56 Pulse Ox 100 05/18/22 05:56 O2 Del Method Room Air 05/17/22 23:19 O2 Flow Rate 2 05/17/22 16:40 Pain Score (VAS): 5 I/O: Intake & Output 05/17/22 05/18/22 05/18/22 23:59 07:59 15:59 Intake Total 1130 1500 720 Output Total 700 Balance 1130 800 720 Laboratory Tests 05/18/22 05:50 05/18/22 05:50 05/17/22 05/18/22 05/18/22 10:47 05:50 05:50 WBC 11.2 H RBC 3.82 L Hgb 12.2 L Hct 37.4 L MCV 97.9 MCH 31.9 MCHC 32.6 RDW 14.2 Plt Count 202 MPV 10.3 Immature Gran % (Auto) 0.4 Neut % (Auto) 88.7 H Lymph % (Auto) 6.1 L [place] % (Auto) 4.8 Eos % (Auto) 0.0 Baso % (Auto) 0.0 L Lymph # (Auto) 0.68 L [place] # (Auto) 0.5 Eos # (Auto) 0.0 Baso # (Auto) 0.0 Abs Immat Gran (auto) 0.05 H Absolute Neuts (auto) 9.9 H Absolute Nucleated RBC 0.0 Nucleated RBC % 0.0 Sodium 133 L Potassium 3.9 Chloride 100 Carbon Dioxide 24 Anion Gap 9 BUN 15 Creatinine 1.10 Estim Creat Clear Calc 47 Estimated GFR > 60 Glucose 142 H Calcium 8.8 Blood Type A Positive Antibody Screen Negative Post-procedural complaints: none Patient Feedback: Patient satisfied with anesthetic care.
[2022-05-18 10:35] VITALS: BP 128/62; PULSE 84; RESP 12; TEMP 36.6; O2SAT 97
--- NOTE | 2022-05-18 12:05 | PM.PNGS ---
Progress Note: A&P Assessment and Plan (1) Tubulovillous adenoma of colon: Code(s): D12.6 - Benign neoplasm of colon, unspecified Status: Acute Assessment and Plan: Advance to full liquids and stop IV fluids Increase activity Final pathology pending Subjective Subjective Date/Time Seen: 05/18/22 12:05 Interval history: Tolerating clear liquids. Bowels moved this AM. Passing flatus. Pain controlled. Exam GI: Inspection: incision (intact with glue) GI Palp: Yes Soft to palpation, Yes Tenderness to palpation present (GI) (incisional) and No Guarding due to palpation present (GI) Auscultation: normal bowel sounds Objective Data Vital Signs Vital Signs: Vital Signs - 24 hr 05/17/22 15:44 05/17/22 15:45 05/17/22 16:00 Temperature 36.1 C L Pulse Rate 71 67 64 Respiratory Rate 13 12 12 Blood Pressure 101/51 L 95/51 L 104/55 L Pulse Oximetry 100 100 100 Oxygen Delivery Simple Face Mask Simple Face Mask Room Air Oxygen Flow Rate 10 10 05/17/22 16:15 05/17/22 16:30 05/17/22 16:40 Temperature Pulse Rate 66 64 67 Respiratory Rate 12 12 12 Blood Pressure 109/53 L 107/50 L 118/63 Pulse Oximetry 98 100 100 Oxygen Delivery Room Air Room Air Nasal Cannula Oxygen Flow Rate 2 05/17/22 17:00 05/17/22 17:30 05/17/22 18:14 Temperature 36.1 C L 36.3 C L 36.4 C Pulse Rate 61 70 62 Respiratory Rate 14 16 18 Blood Pressure 136/62 137/88 139/63 Pulse Oximetry 100 100 98 Oxygen Delivery Oxygen Flow Rate 05/17/22 21:45 05/17/22 23:19 05/18/22 01:45 Temperature 35.9 C L 36.5 C Pulse Rate 72 72 82 Respiratory Rate 21 H 21 H 20 Blood Pressure 100/75 151/74 H Pulse Oximetry 100 100 98 Oxygen Delivery Room Air Oxygen Flow Rate 05/18/22 05:56 05/18/22 10:35 Temperature 36.3 C L 36.6 C Pulse Rate 81 84 Respiratory Rate 21 H 12 Blood Pressure 151/78 H 128/62 Pulse Oximetry 100 97 Oxygen Delivery Oxygen Flow Rate Intake/Output Intake/Output: Intake & Output 05/15/22 05/16/22 05/17/22 05/18/22 23:59 23:59 23:59 23:59 Intake Total 1280 2220 Output Total 700 Balance 1280 1520 Meds/Results Medications: Active Medications Generic Name Dose Route Start Last Admin Trade Name Freq PRN Reason Stop Dose Admin Acetaminophen 1,000 mg 05/17/22 18:00 05/18/22 06:11 Acetaminophen 500 Mg Tablet PO 1,000 mg Q6H JAKUB Administration Enoxaparin Sodium 40 mg 05/18/22 09:00 05/18/22 08:22 Enoxaparin 40 Mg/0.4 Ml Syringe SUB-Q 40 mg DAILY JAKUB Administration Famotidine 40 mg 05/17/22 17:00 05/18/22 08:21 Famotidine 20 Mg Tablet PO 40 mg BID JAKUB Administration Fluticasone Propionate 1 spray 05/18/22 09:00 05/18/22 08:22 Fluticasone Propionate 0.05% Na Spr 16 Gm Btl (*Bkc) NASAL 1 spray DAILY JAKUB Administration Metoprolol Succinate 100 mg 05/18/22 09:00 05/18/22 08:21 Metoprolol Succinate Ext Rel 100 Mg Tabcr PO 100 mg DAILY JAKUB Administration Morphine Sulfate 2 mg 05/17/22 16:42 Morphine Sulfate (*Crx) 2 Mg/Ml Inj IV PUSH Q2H PRN Pain Rated 4-6 Morphine Sulfate 4 mg 05/17/22 16:42 05/18/22 00:34 Morphine Sulfate (*Crx) 4 Mg/Ml Inj IV PUSH 4 mg Q2H PRN Administration Pain Rated 7-10 Ondansetron HCl 4 mg 05/17/22 16:42 Ondansetron Inj 4 Mg/2 Ml Vial IV PUSH Q4H PRN Nausea And Vomiting Oxycodone HCl 2.5 mg 05/17/22 16:42 05/17/22 20:26 Oxycodone Hcl (*Crx) 2.5 Mg Tab Ir PO 2.5 mg Q4H PRN Administration Pain Rated 4-6 Oxycodone HCl 5 mg 05/17/22 16:42 05/18/22 08:20 Oxycodone Hcl (*Crx) 5 Mg Tab Ir PO 5 mg Q4H PRN Administration Pain Rated 7-10 Pantoprazole Sodium 40 mg 05/18/22 09:00 05/18/22 08:22 Pantoprazole 40 Mg Tablet PO 40 mg BID JAKUB Administration Pravastatin Sodium 20 mg 05/18/22 09:00 05/18/22 08:21 Pravastatin Sodium 20 Mg Tablet PO 20 mg DAILY JAKUB Administration Labs Labs: Labor
[2022-05-18 14:10] VITALS: BP 118/54; PULSE 74; RESP 14; TEMP 36.3; O2SAT 98
[2022-05-18 20:03] VITALS: BP 134/64; PULSE 78; RESP 16; TEMP 36.4; O2SAT 96
[2022-05-18] MEDS: traMADol HCL (*CRX) 50 MG TABLET PO (21:42)
[2022-05-19] MEDS: ACETAMINOPHEN 500 MG TABLET 1000 MG PO ×5 (00:04→23:15)
[2022-05-19 05:48] LABS: Basophils Percent Auto 0.1 % (0.2-1.2); Eosinophils Absolute Auto 0.1 K/mm3 (0-0.3); Eosinophils Percent Auto 0.5 % (0-4.4); Hematocrit 34.9 % (42.0-52.0); Hemoglobin 11.4 g/dL (14.0-18.0); Immature Granulocyte Absolute 0.05 K/mm3 (0.00-0.031); Immature Granulocyte Percent A 0.5 % (0-0.5); Lymphocytes Absolute Auto 1.26 K/mm3 (0.9-3.2); Mean Corpuscular HGB Conc 32.7 g/dl (32-36); Mean Corpuscular Hemoglobin 32.1 pg (26-34); Mean Corpuscular Volume 98.3 fl (80-100); Mean Platelet Volume 10.2 fl (7.4-10.4); Monocytes Absolute Auto 0.8 K/mm3 (0.1-0.6); Monocytes Percent Auto 7.7 % (2.6-8.5); Neutrophils Absolute Auto 7.6 K/mm3 (1.3-6.7); Neutrophils Percent Auto 78.2 % (45.5-73.1); Platelet Count Result 197 k/mm3 (150-375); Red Blood Count 3.55 M/mm3 (4.6-6.20); Red Cell Distribution Width 14.6 % (11.5-14.5); White Blood Count 9.7 K/mm3 (4.5-10.0)
[2022-05-19 05:50] VITALS: BP 140/72; PULSE 78; RESP 16; TEMP 36.6; O2SAT 94
[2022-05-19 06:08] LABS: Anion Gap 6 mmol/L (8-16); Blood Urea Nitrogen 18 mg/dL (9-20); Calcium 8.8 mg/dL (8.4-10.2); Carbon Dioxide 26 mmol/L (22-30); Chloride 101 mmol/L (98-107); Estimated CRCL calculation 52 ml/min; Estimated Glomerular Filt Rate > 60; Glucose 98 mg/dL (65-110); Potassium 4.3 mmol/L (3.4-5.0); Sodium 133 mmol/L (137-145)
--- NOTE | 2022-05-19 08:13 | PM.PNGS ---
Progress Note: A&P Assessment and Plan (1) Tubulovillous adenoma of colon: Code(s): D12.6 - Benign neoplasm of colon, unspecified Status: Acute Assessment and Plan: Advance to low fiber diet Will check post void residuals Increase activity Final pathology pending Subjective Subjective Date/Time Seen: 05/19/22 08:13 Interval history: Tolerating diet. Having some difficulty urinating. Also noticed a little blood in his BMs overnight. Exam GI: Inspection: non-distended GI Palp: Yes Soft to palpation, Yes Tenderness to palpation present (GI) (incisional) and No Guarding due to palpation present (GI) Objective Data Vital Signs Vital Signs: Vital Signs - 24 hr 05/18/22 10:35 05/18/22 14:10 05/18/22 20:03 Temperature 36.6 C 36.3 C L 36.4 C Pulse Rate 84 74 78 Respiratory Rate 12 14 16 Blood Pressure 128/62 118/54 L 134/64 Pulse Oximetry 97 98 96 05/19/22 05:50 Temperature 36.6 C Pulse Rate 78 Respiratory Rate 16 Blood Pressure 140/72 Pulse Oximetry 94 Intake/Output Intake/Output: Intake & Output 05/16/22 05/17/22 05/18/22 05/19/22 23:59 23:59 23:59 23:59 Intake Total 1280 4250 450 Output Total 700 Balance 1280 3550 450 Meds/Results Medications: Active Medications Generic Name Dose Route Start Last Admin Trade Name Freq PRN Reason Stop Dose Admin Acetaminophen 1,000 mg 05/17/22 18:00 05/19/22 06:20 Acetaminophen 500 Mg Tablet PO 1,000 mg Q6H JAKUB Administration Enoxaparin Sodium 40 mg 05/18/22 09:00 05/18/22 08:22 Enoxaparin 40 Mg/0.4 Ml Syringe SUB-Q 40 mg DAILY JAKUB Administration Famotidine 40 mg 05/17/22 17:00 05/18/22 17:49 Famotidine 20 Mg Tablet PO 40 mg BID JAKUB Administration Fluticasone Propionate 1 spray 05/18/22 09:00 05/18/22 08:22 Fluticasone Propionate 0.05% Na Spr 16 Gm Btl (*Bkc) NASAL 1 spray DAILY JAKUB Administration Metoprolol Succinate 100 mg 05/18/22 09:00 05/18/22 08:21 Metoprolol Succinate Ext Rel 100 Mg Tabcr PO 100 mg DAILY JAKUB Administration Ondansetron HCl 4 mg 05/18/22 12:12 Ondansetron Hcl Odt 4 Mg Tablet PO Q6H PRN Nausea And Vomiting Pantoprazole Sodium 40 mg 05/18/22 09:00 05/18/22 17:49 Pantoprazole 40 Mg Tablet PO 40 mg BID JAKUB Administration Pravastatin Sodium 20 mg 05/18/22 09:00 05/18/22 08:21 Pravastatin Sodium 20 Mg Tablet PO 20 mg DAILY JAKUB Administration Tramadol HCl 50 mg 05/18/22 12:12 05/18/22 21:42 Tramadol Hcl (*Crx) 50 Mg Tablet PO 50 mg Q4H PRN Administration Pain Rated 4-6 Labs Labs: Laboratory Results - last 24 hr 05/19/22 05/19/22 05:28 05:28 WBC 9.7 RBC 3.55 L Hgb 11.4 L Hct 34.9 L MCV 98.3 MCH 32.1 MCHC 32.7 RDW 14.6 H Plt Count 197 MPV 10.2 Immature Gran % (Auto) 0.5 Neut % (Auto) 78.2 H Lymph % (Auto) 13.0 L [place] % (Auto) 7.7 Eos % (Auto) 0.5 Baso % (Auto) 0.1 L Lymph # (Auto) 1.26 [place] # (Auto) 0.8 H Eos # (Auto) 0.1 Baso # (Auto) 0.0 Abs Immat Gran (auto) 0.05 H Absolute Neuts (auto) 7.6 H Absolute Nucleated RBC 0.0 Nucleated RBC % 0.0 Sodium 133 L Potassium 4.3 Chloride 101 Carbon Dioxide 26 Anion Gap 6 L BUN 18 Creatinine 1.00 Estim Creat Clear Calc 52 Estimated GFR > 60 Glucose 98 Calcium 8.8
[2022-05-19] MEDS: PRAVASTATIN SODIUM 20 MG TABLET PO (08:18)
[2022-05-19 08:19] VITALS: PULSE 78
[2022-05-19] MEDS: METOPROLOL SUCCINATE EXT REL 100 MG TABCR PO (08:19)
[2022-05-19] MEDS: FAMOTIDINE 20 MG TABLET 40 MG PO ×2 (08:19→17:46)
[2022-05-19] MEDS: PANTOPRAZOLE 40 MG TABLET PO ×2 (08:19→17:46)
[2022-05-19] MEDS: FLUTICASONE PROPIONATE 0.05% NA SPR 16 GM BTL (*BKC) 1 SPRAY NASAL (08:21)
[2022-05-19 14:26] VITALS: BP 142/76; PULSE 68; RESP 16; TEMP 36.6; O2SAT 96
[2022-05-19] MEDS: traMADol HCL (*CRX) 50 MG TABLET PO (21:08)
[2022-05-19 22:00] VITALS: BP 151/72; PULSE 80; RESP 14; TEMP 36.3; O2SAT 94
[2022-05-20 05:13] VITALS: BP 158/62; PULSE 73; RESP 16; TEMP 37; O2SAT 94
[2022-05-20 05:33] LABS: Hematocrit 35.2 % (42.0-52.0); Hemoglobin 11.4 g/dL (14.0-18.0); Mean Corpuscular HGB Conc 32.4 g/dl (32-36); Mean Corpuscular Hemoglobin 31.7 pg (26-34); Mean Corpuscular Volume 97.8 fl (80-100); Mean Platelet Volume 10.1 fl (7.4-10.4); Platelet Count Result 183 k/mm3 (150-375); Red Cell Distribution Width 14.6 % (11.5-14.5); White Blood Count 9.3 K/mm3 (4.5-10.0)
[2022-05-20 06:07] LABS: Anion Gap 5 mmol/L (8-16); Blood Urea Nitrogen 11 mg/dL (9-20); Calcium 8.7 mg/dL (8.4-10.2); Carbon Dioxide 29 mmol/L (22-30); Chloride 101 mmol/L (98-107); Estimated CRCL calculation 52 ml/min; Estimated Glomerular Filt Rate > 60; Glucose 98 mg/dL (65-110); Potassium 3.8 mmol/L (3.4-5.0); Sodium 135 mmol/L (137-145)
[2022-05-20] MEDS: ACETAMINOPHEN 500 MG TABLET 1000 MG PO (06:37)
--- NOTE | 2022-05-20 07:57 | PM.DS ---
DS: Admitting Diagnosis Discharge Date 05/20/22 Admitting Diagnosis Tubulovillous adenoma of colon DS: Discharge Diagnosis Discharge Diagnosis (1) Tubulovillous adenoma of colon: Code(s): D12.6 - Benign neoplasm of colon, unspecified Status: Acute (2) Hypertension: Qualifiers: Hypertension type: primary hypertension Qualified Code(s): I10 - Essential (primary) hypertension Code(s): I10 - Essential (primary) hypertension Status: Acute DS: Summary Hospital Course Reason for hospitalization: Tubulovillous adenoma of colon Hospital Course: This is an 82-year-old man who presented for colon resection for a tubulovillous adenoma in his transverse colon. He previously had a colonoscopy where a large polyp was identified that was unable to be removed endoscopically. It was biopsied and tattooed and pathology came back as tubulovillous adenoma. He presented for hand assisted laparoscopic left hemicolectomy on 05/17/2022. He was then admitted to the surgical floor postoperatively. He was started on a clear liquid diet and activity was gradually advanced as tolerated. He was moving his bowels on postop day 1 and was passing flatus. He was advanced to a full liquid diet. On postoperative day 2 he was continued to tolerate his diet and bowels were moving. He was advanced to a soft regular diet. He was having some occasional blood in his stool therefore this was continued to be monitored for 1 more day. He was also having some urinary hesitancy, but post void bladder scans were showing minimal postvoid residuals. On postop day 3 his urinary symptoms had resolved and he was continuing to tolerate his regular diet and was no longer noticing any blood in his stool. His pathology came back as tubulovillous adenoma without any evidence malignancy. He was discharged 05/20/2022. Status at Discharge Functional status at discharge: independent ambulation Overall status at discharge: patient is progressing back to baseline Time Spent with Patient Time attestation: Total time spent providing and/or coordinating discharge services: Time spent: Less than 30 minutes Exam Const: General: no acute distress and alert Orientation/consciousness: patient oriented x3 Resp: Effort & Inspection: normal respiratory effort Auscultation: clear to auscultation bilaterally Cardio: Rate: regular rate Rhythm: regular rhythm Heart sounds: S1 normal heart sound present and S2 normal heart sound present GI: Inspection: non-distended and incision ( Intact with glue, mild bruising at inferior hand port incision) GI Palp: Yes Soft to palpation, Yes Tenderness to palpation present (GI) ( incisional) and No Guarding due to palpation present (GI) Auscultation: normal bowel sounds DS: Data Data Completed and Pending Completed studies during hospitalization: Pending at discharge 05/17/22 15:01 Surgical [PTH] Routine Final Diagnosis Large intestine, left colon, resection: -? Tubulovillous adenoma, 3.0 cm -? Surgical margins negative for adenoma -? Three lymph nodes with no histopathologic abnormality -? Omentum with no histopathologic abnormality Reviewed and Electronically Signed by: Aldo Knapp MD 05/19/22? [id number] Labs on day of discharge: Labs from last 24 hours 05/20/22 05/20/22 05:28 05:28 WBC 9.3 RBC 3.60 L Hgb 11.4 L Hct 35.2 L MCV 97.8 MCH 31.7 MCHC 32.4 RDW 14.6 H Plt Count 183 MPV 10.1 Sodium 135 L Potassium 3.8 Chloride 101 Carbon Dioxide 29 Anion Gap 5 L BUN 11 D Creatinine 1.00 Estim Creat Clear Calc 52 Estimated GFR > 60 Glucose 98 Calcium 8.7 Discharge Plan Discharge Attending physician on discharge: Raul Zimmerman Discharging Clinician: Raul Zimmerman Patient Disposition: Home, Self-Care Activity: other - see discharge instructions Diet: other - see discharge instructions Wound C
[2022-05-20] MEDS: PRAVASTATIN SODIUM 20 MG TABLET PO (08:39)
[2022-05-20] MEDS: ENOXAPARIN 40 MG/0.4 ML SYRINGE SUB-Q (08:39)
[2022-05-20] MEDS: PANTOPRAZOLE 40 MG TABLET PO (08:39)
[2022-05-20] MEDS: FAMOTIDINE 20 MG TABLET 40 MG PO (08:39)
[2022-05-20] MEDS: FLUTICASONE PROPIONATE 0.05% NA SPR 16 GM BTL (*BKC) 1 SPRAY NASAL (08:43)
[2022-05-20 09:28] VITALS: PULSE 64
[2022-05-20] MEDS: METOPROLOL SUCCINATE EXT REL 100 MG TABCR PO (09:28)
[2022-05-20] MEDS: ONDANSETRON HCL ODT 4 MG TABLET PO (09:33)
== END 2022-05-20 10:30 | disposition home or self-care (01) | DRG 331 ==
LOC: ANH2MED 16:54
PROVIDERS: Admitting Provider Surgery; PCP Family Medicine; Visit Provider Surgery
PROC: 0D1E4Z4 Bypass Large Intestine to Cutaneous, Percutaneous Endoscopic Approach (ICD-10-PCS; principal; 2022-05-17 12:00)
DX: D12.3 Benign neoplasm of transverse colon (principal); R19.5 Other fecal abnormalities; R39.11 Hesitancy of micturition; I10 Essential (primary) hypertension; Z86.16 Personal history of COVID-19; I25.10 Atherosclerotic heart disease of native coronary artery without angina pectoris; E78.5 Hyperlipidemia, unspecified; Z85.51 Personal history of malignant neoplasm of bladder; Z85.46 Personal history of malignant neoplasm of prostate; Z90.49 Acquired absence of other specified parts of digestive tract; Z95.5 Presence of coronary angioplasty implant and graft; Z90.79 Acquired absence of other genital organ(s); Z96.651 Presence of right artificial knee joint; Z87.891 Personal history of nicotine dependence
CPT/HCPCS: 36415; 80048; 85025; 85027; 86850; 86900; 86901; 88309; A9270; C1729; C9290; J0690; J1170; J1650; J1885; J2270; J3010; J7030; J7120

== ENCOUNTER 2023-04-27 13:56 | Outpatient (CLI) | payer MEDICARE, SELFPAY ==
--- NOTE | ~2023-04-27 | CT_ITS ---
EXAMINATION: CT abdomen pelvis wo con DATE: 04/27/2023 14:19 INDICATION: Bowel movement changes. Constipation. Left lower quadrant abdominal pain. TECHNIQUE: Computed tomography (CT) of the abdomen and pelvis was performed without intravenous contr ast. Automated exposure control and iterative reconstruction technique were employed. Exam dose: 437 .76 mGy-cm total exam DLP. COMPARISON: 12/13/2021 CT abdomen pelvis with IV contrast FINDINGS: Stable mild focal middle lobe scarring since 12/13/2021. Mild discoid atelectasis or scarring in the left lower lobe. Posterior left diaphragmatic chronic ravinder vation. Normal heart size. Small pericardial fluid. No pleural effusion. Status post cholecystectomy. The liver, pancreas, bile ducts and pancreatic duct are unremarkable. The adrenal glands are unremarkable. 3 cm posterior lower pole left renal cyst. Bilateral renal cortical irregularity suggesting bilateral renal scarring. No urinary tract calculus or hydroureteronephrosis is noted. The urinary bladder is unremarkable. Status post prostatectomy and bilateral pelvic wall lymph node dissection. There is extensive atherosclerotic calcification of the abdominal aorta, calcification at the origins of the celiac and superior mesenteric and particularly both renal arteries. No abdominal aortic aneu rysm. There is calcification of the iliac and femoral arteries. No intraperitoneal or retroperitoneal or pelvic mass lesion or adenopathy or ascites. There is partial resection of the colon. No bowel obstruction or intraperitoneal free air. Small midline supraumbilical ventral abdominal wall hernia containing fat. Small umbilical fat-contai seamus hernia. Moderate T10 chronic compression fracture, present on 12/13/2021. Moderately prominent degenerative disc disease at L3-4 and severe degenerative disc disease at L4-5 a nd L5-S1. Prominent degenerative change of the apophyseal joints but no spondylolisthesis. No suspicious osteolytic or osteoblastic lesions are noted. IMPRESSION: Status post partial colectomy; no bowel obstruction or intraperitoneal free air Status post prostatectomy end bilateral pelvic sidewall lymph node dissection Status post cholecystectomy Chronic T10 compression fracture Small pericardial effusion Reviewed, dictated and finalized at [facility] Reviewed, dictated and finalized at [facility]. IMPRESSION: Status post partial colectomy; no bowel obstruction or intraperiton eal free air Status post prostatectomy end bilateral pelvic sidewall lymph node dissection Status post cholecystectomy Chronic T10 compression fracture Small pericardial effusion
== END 2023-04-27 13:57 | disposition home or self-care (01) ==
PROVIDERS: PCP Family Medicine; Visit Provider Family Medicine
DX: K59.01 Slow transit constipation (principal); C67.9 Malignant neoplasm of bladder, unspecified; Z90.49 Acquired absence of other specified parts of digestive tract; I31.39 Other pericardial effusion (noninflammatory)
CPT/HCPCS: 74176

== ENCOUNTER 2024-08-09 01:18 | Day surgery (SDC) | payer MEDICARE, SELFPAY ==
[2024-08-08 17:08] VITALS: BMI 24.4
[2024-08-09] VITALS (15 sets, daily range): BP systolic 115–152; BP diastolic 64–93; PULSE 63–76; RESP 15–20; TEMP 36.2; O2SAT 93–100
[2024-08-09 07:49] LABS: Basophils Percent Auto 0.4 % (0.2-1.2); Eosinophils Absolute Auto 0.6 K/mm3 (0-0.3); Eosinophils Percent Auto 8.1 % (0-4.4); Hematocrit 40.4 % (42.0-52.0); Hemoglobin 13.6 g/dL (14.0-18.0); Immature Granulocyte Absolute 0.03 K/mm3 (0.00-0.031); Immature Granulocyte Percent A 0.4 % (0-0.5); Lymphocytes Absolute Auto 1.98 K/mm3 (0.9-3.2); Lymphocytes Percent Auto 27.3 % (18.3-44.2); Mean Corpuscular HGB Conc 33.7 g/dl (32-36); Mean Corpuscular Hemoglobin 32.9 pg (26-34); Mean Corpuscular Volume 97.8 fl (80-100); Mean Platelet Volume 9.5 fl (7.4-10.4); Monocytes Absolute Auto 0.7 K/mm3 (0.1-0.6); Monocytes Percent Auto 10.1 % (2.6-8.5); Neutrophils Absolute Auto 3.9 K/mm3 (1.3-6.7); Neutrophils Percent Auto 53.7 % (45.5-73.1); Platelet Count Result 213 k/mm3 (150-375); Red Blood Count 4.13 M/mm3 (4.6-6.20); Red Cell Distribution Width 14.1 % (11.5-14.5); White Blood Count 7.3 K/mm3 (4.5-10.0)
[2024-08-09 07:58] LABS: Anion Gap 8 mmol/L (4-12); Blood Urea Nitrogen 17 mg/dL (9-20); Calcium 9.9 mg/dL (8.4-10.2); Carbon Dioxide 25 mmol/L (22-30); Chloride 106 mmol/L (98-107); Estimated CRCL calculation 51 ml/min; Estimated Glomerular Filt Rate > 60; Glucose 97 mg/dL (65-110); Potassium 3.8 mmol/L (3.4-5.0); Sodium 139 mmol/L (137-145)
--- NOTE | 2024-08-09 09:56 | WPDHPUPDATE1 ---
History and Physical Update Update Date/Time: 08/09/24 09:56 History and Physical has been reviewed, including an updated exam of the patient. There are NO changes in the patient's condition. Risks, benefits, and alternatives have been discussed and questions answered. Patient agrees to proceed with procedure.
--- NOTE | 2024-08-09 09:56 | WPDMODSED ---
Moderate Sedation Note-Pt Data Patient Data Diagnosis: Coronary artery disease Present Complaint: Coronary artery disease Procedure to be performed/Plan: Coronary angiography, left heart cath, +/- PCI Allergies Allergy/AdvReac Type Severity Reaction Status Date / Time No Known Allergies Allergy Verified 08/09/24 07:25 Home Medications Medication Instructions Recorded Confirmed Type garlic 1,000 mg capsule 1,000 mg PO DAILY 12/13/21 08/08/24 History glucosamine sulfate 750 mg tablet 750 mg PO DAILY 12/13/21 08/08/24 History coQ10 (ubiquinol) 200 mg capsule 200 mg PO DAILY 12/15/21 08/08/24 History gjulricuvicb-pojqbwrf-bvjdiu tablet 1 tablet PO DAILY 12/15/21 08/08/24 History cetirizine 5 mg-pseudoephedrine ER 1 tablet PO Q12H PRN allergy 08/08/24 08/08/24 History 120 mg tablet,extended symptoms release,12hr (Zyrtec-D) clopidogrel 75 mg tablet 75 mg PO DAILY 08/08/24 08/08/24 History ezetimibe 10 mg tablet 10 mg PO DAILY 08/08/24 08/08/24 History famotidine 20 mg PO BID 08/08/24 08/08/24 History fluticasone propionate 50 2 spray intranasal DAILY 08/08/24 08/08/24 History mcg/actuation nasal spray,suspension lisinopril 20 mg tablet 20 mg PO BID 08/08/24 08/08/24 History metoprolol succinate 100 mg 50 mg PO DAILY 08/08/24 08/08/24 History tablet,extended release 24 hr pravastatin 20 mg tablet 20 mg PO DAILY 08/08/24 08/08/24 History Sedation/Anesthesia: No previous sedation/anesthesia problems (including family history). [facility] Past Medical History Medical History Bladder cancer CAD (coronary artery disease) History of prostate cancer 1998 Hyperlipidemia Hypertension Prostate CA 1998 Seasonal allergies Use of leuprolide acetate (Lupron) Surgical History Surgical History H/O colonoscopy with polypectomy H/O hemicolectomy 05/17/2022 - hand assisted laparoscopic left hemicolectomy History of appendectomy History of cholecystectomy History of coronary artery stent placement 1 stent 2003 Hx of colonoscopy Hx of total knee arthroplasty R S/P prostatectomy Family History Family History Father Alzheimer disease Other Hypertension Social History Social History Social History: Smoking packs per day: 1.5 Smoking cigarettes per day: 30.0 Years smoked: 50 Smoking pack-years: 75.00 Smoking status: Former smoker Tobacco type: cigarettes Second hand tobacco smoke exposure: No Smoking end date: 10/02/98 Alcohol intake: current Alcohol use details: Rarely Substance use: never Substance use type: does not use Lack of Transportation: No Lack of Food: Never True Current Housing: I Have Housing Concerned About Future Housing: No Difficulty Paying Gas/Electric Bills: No Difficulty Paying for Meds: No Currently Unemployed: YES Education: Decline to Answer Difficulty w/ Childcare or Family Care: No Living arrangements: with family Additional living arrangements comments: lives w/ , [employer] Occupation/Education: retired Gender identity (if verbalized by the patient): Male Sexual Orientation (if Verbalized by the Patient): Straight or Heterosexual Spiritual care concerns: No Mod Sed Physical Exam Physical Exam Pre Procedural Exam: Normal: Appearance, Lungs, Heart Rate, Heart Rhythm, Neuro Exam, Extremities and Skin Hours since solid foods: 12 Hours since liquid intake: 8 Mallampati Classification: class II Internal Medicine - PN: Obj Da Vital Signs Vital Signs: Vital Signs - 24 hr 08/09/24 07:26 Temperature 36.2 C L Pulse Rate 76 Respiratory Rate 17 Blood Pressure 137/93 H Pulse Oximetry 97 Oxygen Delivery Room Air Labs 08/09/24 07:30 08/09/24 07:30 Labs: Laboratory Results - last 24 hr 08/09/24 07:30 WBC 7.3 RBC 4.13 L Hgb 13.6 L Hct 40.4 L MCV 97.8 MCH 32.9 MCHC 33.7 RDW 14.1 Plt Count 213 MPV 9.5 Immature Gran % (Auto) 0.4 Neut % (Auto) 53.7 Lymph % (Auto) 27.3 [place] % (Auto) 10.1 H Eos % (Auto) 8.1 H Baso % (Auto) 0.4 Lymph # (Auto) 1.98 [place] # (Auto) 0.7 H Eos # (Auto) 0.6 H Baso # (Auto) 0.0 Abs Immat Gran (auto) 0.03 Absolute Neuts (auto) 3.9 Absolute Nucleated RBC 0.000 Nucleated RBC % 0.0 Sodium 139 Potassium 3.8 Chloride 106 Carbon Dioxide 25 Anion Gap 8 BUN 17 Creatinine 1.00 Estim Creat Clear Calc 51 Estimated GFR > 60 Glucose 97 Calcium 9.9 ASA Classification/Sedation ASA Classification/Sedation ASA Class: III Emergent: No Risks: Risks, benefits and alternatives explained and patient/family accepted plan for sedation. Patient re-evaluated immediately prior to sedation.
--- NOTE | 2024-08-09 09:58 | P.PCNCC_ITS ---
Cardiac Cath Procedure Note Date of procedure:: 08/09/24 Performing physician:: CATHETERIZATION LABORATORY REPORT Procedure Date: 08/09/2024 Office Manager Executive Assistant: Roselia Tavera M.D., [facility]? Referring Physician: Roselia Tavera M.D. ? Anesthesia: Versed and Fentanyl were ordered and given in my presence at 09:21, procedure ended at 09:44. Supervision of nurse monitored moderate sedation with Versed and Fentanyl was provided for 23 minutes. Total of Versed 2mg and Fentanyl 75mcg were administered by the Chronic Manager RN Riley Pimentel. Pre-op Diagnosis: Coronary artery disease Post-op Diagnosis: 1. Moderate coronary artery disease 2. Elevated left ventricular end-diastolic pressure is 26mmHg. Procedure(s): 1. Moderate sedation 2. Ultrasound-guided access of the right radial artery 3. Coronary angiography 4. Left heart cath Access Site: Right radial artery Brief History and Clinical Indications: Patient is an 84 year old male with CAD s/p prior PCI who is referred for [facility] for abnormal stress test. All risks, benefits and alternatives to left heart catheterization with or without percutaneous coronary intervention was discussed at length with the patient. Risk of complications including but not limited to bleeding, infection, arrhythmia, stroke, worsening kidney function, blood loss, groin hematoma, limb loss, emergency coronary artery bypass grafting, and even were discussed with the patient and all questions were answered. The patient understood and wished to proceed. Time out called, patient name, date of , medical record number, allergies, procedure performed, identify Office Manager Executive Assistant, patient and staff member concurred with accurate data, procedure carried on. Findings: LEFT HEART CATHETERIZATION FINDINGS: 1. Left main: The left main coronary artery is widely patent without any significant obstructive disease. 2. Left anterior descending: The proximal to mid LAD has mild diffuse disease. No obstructive disease in the LAD or diagonal branches. 3. Left circumflex: There is a large caliber OM branch with mild disease in the proximal to mid portion. Patent stent in the mid portion of the OM. Moderate in- stent restenosis in the distal portion of the stent. Immediately distal to the stent, there is a moderate 60% stenosis. 4. Right coronary artery: The RCA has luminal irregularities without any significant obstructive angiographic disease. The RCA is the dominant vessel. 5. Left ventricle: A. End-diastolic pressure 26 mmHg. B. LV gram deferred. C. No significant gradient across aortic valve on catheter pullback. Description of Procedure: Informed consent signed and placed in the chart. Patient transferred to laborer shellfish processing room. Prepped and draped in usual sterile fashion. 2% lidocaine injected subcutaneously in right wrist area. 22-gauge venipuncture catheter used to access the right radial artery under ultrasound guidance. 6-FR slender sheath placed in right radial artery. Nitroglycerine and Verapamil were given intraarterial through the sheath. Versacore wire advanced under fluoroscopy 5F Tig 4 diagnostic catheter engaged Left Main Coronary Artery. 5F Tig 4 diagnostic catheter engaged Right Coronary Artery Multiple orthogonal angiogram obtained and reviewed 5F Pigtail diagnostic catheter crossed aortic valve to obtain LVEDP, LV angiogram deferred. Hemostasis was achieved by application of TR band. Disposition: Home Plan: The patient will be monitored in the recovery area. The above findings were discussed with the referring physician. Continue aggressive medical therapy and risk factor modification. ? Roselia Tavera M.D. Interventional Cardiology
== END 2024-08-09 13:25 | disposition home or self-care (01) ==
PROVIDERS: PCP Family Medicine; Visit Provider Internal Medicine
PROC: 4A023N7 Measurement of Cardiac Sampling and Pressure, Left Heart, Percutaneous Approach (ICD-10-PCS; CPT 93452; principal; 2024-08-09 08:30)
DX: I25.10 Atherosclerotic heart disease of native coronary artery without angina pectoris (principal); R94.39 Abnormal result of other cardiovascular function study; I10 Essential (primary) hypertension; E78.5 Hyperlipidemia, unspecified; Z95.5 Presence of coronary angioplasty implant and graft; Z79.02 Long term (current) use of antithrombotics/antiplatelets; Z85.46 Personal history of malignant neoplasm of prostate; Z90.49 Acquired absence of other specified parts of digestive tract; Z87.891 Personal history of nicotine dependence
CPT/HCPCS: 36415; 80048; 85025; 93458; A9270; C1769; C1887; C1894; J1644; J2003; J2250; J2305; J3010; J7040

== ENCOUNTER 2025-07-10 15:23 | Outpatient (CLI) | payer MEDICARE, SELFPAY ==
--- NOTE | ~2025-07-10 | XR_ITS ---
EXAMINATION: XR hand BI arthritis min 3V, 07/10/2025 15:55 CDT HISTORY: M25.541 - Pain in joints of right hand COMPARISON: No comparisons available. Findings: No acute fracture or malalignment. Moderate to severe degenerative changes of the right distal and proximal interphalangeal joints as well as the first second and third metacarpophalangeal joints with osteophytosis and chondrocalcinosis with small erosion suspected. There are moderate degenerative changes noted also of the visualized carpal joints bilaterally with chondrocalcinosis. Minimal degenerative changes of the distal and proximal interphalangeal joints of the left side with moderate to severe degenerative changes of the left first metacarpal carpal joint. Soft tissues unremarkable. Impression: No acute fracture or malalignment. Reviewed, dictated and finalized at location P. Impression: No acute fracture or malalignment.
== END 2025-07-10 15:24 | disposition home or self-care (01) ==
LOC: MICIMG 15:25
PROVIDERS: PCP Family Medicine; Visit Provider Physician Assistant Medical
DX: M25.541 Pain in joints of right hand (principal); M25.542 Pain in joints of left hand
CPT/HCPCS: 73130

== ENCOUNTER 2025-09-04 09:20 | Outpatient (CLI) | payer MEDICARE, SELFPAY ==
--- NOTE | ~2025-09-04 | XR_ITS ---
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 Findings: No acute fracture or malalignment. Moderate degenerative changes Soft tissues unremarkable. Impression: No acute fracture or malalignment. Reviewed, dictated and finalized at location P. CAL PATHOLOGY TEACHER Impression: No acute fracture or malalignment.
== END 2025-09-04 09:21 | disposition home or self-care (01) ==
LOC: MICIMG 09:22
PROVIDERS: PCP Family Medicine; Visit Provider Student in an Organized Health Care Education/Training Program
DX: M25.552 Pain in left hip (principal); W10.2XXA Fall (on)(from) incline, initial encounter
CPT/HCPCS: 73502